=== PATIENT | male | born 1990 | race Caucasian/White ===

== ENCOUNTER 2021-10-09 13:02 | Inpatient (IN) | payer SELFPAY ==
[2021-10-09] VITALS (8 sets, daily range): BP systolic 102–149; BP diastolic 56–99; PULSE 65–96; RESP 15–18; TEMP 36.8–37.2; O2SAT 93–99; BMI 25.7
--- NOTE | 2021-10-09 13:18 | ECG_ITS ---
[facility] Test Date: 2021-10-09 Pat Name: Moody Tuttle Department: Room: Gender: Male Manager Development: : 1990 Requested By: Shaka Weiss Order Number: [id number] Pham MD: Stephanie Butcher M.D. Measurements Intervals [place] Rate: 87 P: 56 NE: 151 QRS: 61 QRSD: 94 T: 61 QT: 344 QTc: 416 Interpretive Statements SINUS RHYTHM No previous ECG available for comparison Electronically Signed On 10-09-2021 22:33:35 CDT by Stephanie Butcher M.D. [id number]
[2021-10-09 13:28] LABS: Basophils # 0.1 10^3/uL (0.0-0.1); Basophils % 0.4 %; Hematocrit 50.3 % (42.0-52.0); Hemoglobin 17.2 g/dL (11.7-16.6); Lymphocytes # 3.1 10^3/uL (0.8-4.8); Lymphocytes % 10.6 %; Mean Corpuscular HGB Conc 34.2 g/dL (30.0-36.0); Mean Corpuscular Hemoglobin 25.8 pg (28.0-34.0); Mean Corpuscular Volume 75.4 fl (80-94); Mean Platelet Volume 10.4 fL (7.4-10.4); Monocytes # 2.7 10^3/uL (0.2-0.9); Monocytes % 9.3 %; Neutrophils # 22.69 10^3/uL (1.8-7.7); Neutrophils % 77.9 %; Nucleated Red Blood Cells % 0 %; Platelet Count 645 10^3/cmm (130-400); Red Blood Count 6.67 10^6/uL (4.1-5.3); Red Cell Distribution Width 14.5 % (12.1-15.1); White Blood Count 29.1 10^3/uL (4.0-10.0)
[2021-10-09 13:53] LABS: Alanine Aminotransferase 106 U/L (0-41); Albumin Level 5.7 g/dL (3.5-5.2); Alkaline Phosphatase 80 IU/L (40-130); Anion Gap 32.9 (5-19); Aspartate Amino Transferase 243 U/L (0-40); Blood Urea Nitrogen 65 mg/dL (6-20); Carbon Dioxide 17 mmol/L (22-29); Chloride 79 mmol/L (98-107); Globulin 4.6 g/dL (1.3-4.6); Glomerular Filtration Rate 17.9 mL/min (90-130); Glucose 114 mg/dL (65-115); Lipase 40 U/L (13-60); Osmolality Calculated 280 mOsm/kg (285-295); Potassium 3.9 mmol/L (3.5-5.1); Sodium 125 mmol/L (136-145); Total Bilirubin 2.5 mg/dL (0.15-1.2); Total Protein 10.3 g/dL (6.6-8.7)
[2021-10-09 14:14] LABS: Creatine Phosphokinase 14300 U/L (39-308)
--- NOTE | 2021-10-09 14:29 | ECG_ITS ---
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 Measurements Intervals [place] Rate: 79 P: 58 [place]: 163 QRS: 63 QRSD: 95 T: 57 QT: 378 QTc: 435 Interpretive Statements SINUS RHYTHM Compared to ECG 10/09/2021 13:29:20 No significant changes Electronically Signed On 10-09-2021 22:32:59 CDT by Stephanie Butcher M.D. [id number]
--- NOTE | 2021-10-09 14:39 | W.ED.GENADLT ---
HPI - General Adult General: Chief complaint: General Medical Stated complaint: HEAT EXPOSURE Time Seen by Provider: 10/09/21 13:11 Source: patient Mode of arrival: ambulatory History of Present Illness: 31-year-old male presents emergency room complaining of his been walking for the last several days he is extremely weak reporting a fever. He admits to having used methamphetamines at times even recently. He is complaining of body aches and pains. Is also having some mild chest discomfort and nonproductive cough. Onset (ago): day(s) Location: chest Radiation: non-radiation Severity: moderate Pain Consistency: constant Relieving factors: none Exacerbating factors: none Associated symptoms: Reports chest pain; Deny confusion, dyspnea, malaise, nausea, rash or vomiting Review of Systems Const: Denies: fever(s), chills, body aches, change in appetite, fatigue or malaise ENMT: Denies: throat pain, ear or mastoid pain, nasal discharge or nasal congestion Card: Reports: chest pain Resp: Denies: dyspnea, productive cough or non-productive cough GI: Denies: abdominal pain, nausea, vomiting, hematemesis, coffee ground emesis, diarrhea, constipation, bloating, hematochezia or melena : Denies: flank pain, dysuria, urinary frequency or urinary urgency Skin/Breast: Denies: rash or pruritus Neuro: Denies: confusion PFSH ED PFSH: Medical History Heart murmur Tobacco use disorder Family History Father Hypertension Mother Hypertension Social History Smoking and tobacco status: current every day smoker Alcohol intake: current Physical Exam Const: COMMON NORMALS: no acute distress GENERAL APPEARANCE: cooperative and comfortable ORIENTATION/CONSCIOUSNESS: Yes awake HENMT: COMMON NORMALS: normocephalic, atraumatic and hearing grossly normal bilaterally HEAD & SCALP: normocephalic and atraumatic Resp: COMMON NORMALS: normal respiratory effort, No retractions, No use of accessory muscles and clear to auscultation bilaterally AUSCULTATION: clear to auscultation bilaterally Cardio: COMMON NORMALS: regular rate, regular rhythm and No murmurs present (Cardio) RATE: regular rate RHYTHM: regular rhythm GI: COMMON NORMALS: Soft to palpation and No hepatosplenomegaly present AUSCULTATION: Yes normoactive bowel sounds PALPATION: Yes Soft to palpation, No Tenderness to palpation present (GI), No Guarding due to palpation present (GI) and Yes No hepatosplenomegaly present : BLADDER/KIDNEY EXAM: Yes CVA tenderness (Moderate) Back/Pelvis: GENERAL BACK: Yes CVA tenderness (Moderate) Extremity: COMMON NORMALS: normal to inspection, capillary refill normal, no clubbing, cyanosis or edema, no calf tenderness and no pedal edema Skin: COMMON NORMALS: no rashes or lesions noted GENERAL SKIN EXAM: no rashes or lesions noted Course Vital Signs: Vital signs: Vital Signs Temperature 98.0 F 10/10/21 13:36 Pulse Rate 98 10/10/21 13:36 Respiratory Rate 18 10/10/21 13:36 Blood Pressure 117/77 10/10/21 13:36 Pulse Oximetry 99 10/10/21 10:30 [facility] - General Adult Medical Decision Making Acute kidney injury with rhabdomyolysis. Suspect sepsis likely secondary to IV drug use discussed with hospitalist orders written Medical Records I reviewed the patient's medical records. Lab Data I reviewed the patient's lab results. : 10/10/21 05:37 10/10/21 05:37 Radiology Impressions Renal Ultrasound 10/09/21 14:55 IMPRESSION: Normal renal ultrasound. Chest X-Ray 10/09/21 17:22 IMPRESSION: No acute findings. Laboratory Results WBC 29.1 10^3/uL (4.0-10.0) H 10/09/21 13:00 RBC 6.67 10^6/uL (4.1-5.3) H 10/09/21 13:00 Hgb 17.2 g/dL (11.7-16.6) H 10/09/21 13:00 Hct 50.3 % (42.0-52.0) 10/09/21 13:00 MCV 75.4 fl (80-94) L 10/09/21 13:00 MCH 25.8 pg (28.0-34.0) L 10/09/21 13:00 MCHC 34.2 g/dL (30.0-36.0) 10/09/21 13:00 RDW 14.5 % (12.1-15.1) 10/09/21 13:00 Plt Count 645 10^3/cmm (130-400) H 10/09/21 13:00 MPV 10.4 fL (7.4-10.4) 10/09/21 13:00 Neut % (Auto) 77.9 % 10/09/21 13:00 Lymph % (Auto) 10.6 % 10/09/21 13:00 [place] % (Auto) 9.3 % 10/09/21 13:00 Eos % (Auto) 0.0 % 10/09/21 13:00 Baso % (Auto) 0.4 % 10/09/21 13:00 Neut # (Auto) 22.69 10^3/uL (1.8-7.7) H 10/09/21 13:00 Lymph # (Auto) 3.1 10^3/uL (0.8-4.8) 10/09/21 13:00 [place] # (Auto) 2.7 10^3/uL (0.2-0.9) H 10/09/21 13:00 Eos # (Auto) 0.0 10^3/uL (0.0-0.8) 10/09/21 13:00 Baso # (Auto) 0.1 10^3/uL (0.0-0.1) 10/09/21 13:00 Nucleated RBC % (auto) 0 % 10/09/21 13:00 Nucleated RBCs # 0.0 /100WBC 10/09/21 13:00 Sodium 125 mmol/L (136-145) L 10/09/21 13:00 Sodium 128 mmol/L (136-145) L 10/09/21 13:00 Potassium 3.9 mmol/L (3.5-5.1) 10/09/21 13:00 Potassium 4.2 mmol/L (3.5-5.1) 10/09/21 13:00 Chloride 79 mmol/L (98-107) L 10/09/21 13:00 Chloride 80 mmol/L (98-107) L 10/09/21 13:00 Carbon Dioxide 17 mmol/L (22-29) L 10/09/21 13:00 Carbon Dioxide 17 mmol/L (22-29) L 10/09/21 13:00 Anion Gap 32.9 (5-19) H 10/09/21 13:00 Anion Gap 35.2 (5-19) H 10/09/21 13:00 BUN 65 mg/dL (6-20) H 10/09/21 13:00 BUN 70 mg/dL (6-20) H 10/09/21 13:00 Creatinine 3.9 mg/dL (0.7-1.2) H 10/09/21 13:00 Creatinine 4.2 mg/dL (0.7-1.2) H 10/09/21 13:00 GFR Calculation 16.4 mL/min (90-130) L 10/09/21 13:00 GFR Calculation 17.9 mL/min (90-130) L 10/09/21 13:00 Glucose 105 mg/dL (65-115) 10/09/21 13:00 Glucose 114 mg/dL (65-115) 10/09/21 13:00 Calculated Osmolality 280 mOsm/kg (285-295) L 10/09/21 13:00 Lactic Acid 1.3 mmol/L (0.5-2.2) 10/09/21 15:02 Calcium 11.0 mg/dL (8.5-10.5) H 10/09/21 13:00 Calcium 11.1 mg/dL (8.5-10.5) H 10/09/21 13:00 Phosphorus 7.7 mg/dL (2.5-4.5) H* 10/09/21 13:00 Total Bilirubin 2.5 mg/dL (0.15-1.2) H 10/09/21 13:00 AST 243 U/L (0-40) H 10/09/21 13:00 ALT 106 U/L (0-41) H 10/09/21 13:00 Alkaline Phosphatase 80 IU/L (40-130) 10/09/21 13:00 Creatine Kinase 23184 U/L (39-308) H* 10/09/21 13:00 Creatine Kinase 05564 U/L (39-308) H* 10/09/21 13:00 Troponin T Baseline 61 ng/L (0-15) H 10/09/21 13:00 Troponin T 120 Minute 26.85 ng/L (0-15) H 10/09/21 15:02 Delta Troponin T -34.15 ABS# (0-10) L 10/09/21 15:02 C-Reactive Protein 43.3 mg/L (0.0-4.9) H 10/09/21 13:00 Total Protein 10.3 g/dL (6.6-8.7) H 10/09/21 13:00 Albumin 5.7 g/dL (3.5-5.2) H 10/09/21 13:00 Albumin 5.8 g/dL (3.5-5.2) H 10/09/21 13:00 Globulin 4.6 g/dL (1.3-4.6) 10/09/21 13:00 Lipase 40 U/L (13-60) 10/09/21 13:00 Procalcitonin 0.82 ng/mL (0-0.5) H 10/09/21 13:00 Urine Color Dark yellow (Yellow) 10/09/21 15:20 Urine Appearance Turbid (CLEAR) 10/09/21 15:20 Urine pH 5 (5-7) 10/09/21 15:20 Ur Specific [place] 1.020 (1.005-1.030) 10/09/21 15:20 Urine Protein 1+ (Negative) H 10/09/21 15:20 Urine Glucose (UA) Norm (Normal) 10/09/21 15:20 Urine Ketones 1+ (Negative) H 10/09/21 15:20 Urine Blood 3+ (Negative) H 10/09/21 15:20 Urine Nitrate Negative (Negative) 10/09/21 15:20 Urine Bilirubin Neg (Negative) 10/09/21 15:20 Urine Urobilinogen Norm mg/dL (Negative) 10/09/21 15:20 Ur Leukocyte Esterase Negative (Negative) 10/09/21 15:20 Urine RBC 0-4 /hpf (0-2) H 10/09/21 15:20 Urine WBC 0-4 /hpf (0-5) H 10/09/21 15:20 Ur Squamous Epith Cells 0-4 /hpf (0-5) H 10/09/21 15:20 Amorphous Sediment Not Reportable 10/09/21 15:20 Urine Bacteria 1+ /hpf (NONE) H 10/09/21 15:20 Hyaline Casts 0-4 /lpf H 10/09/21 15:20 Fine Granular Casts 0-4 /lpf H 10/09/21 15:20 Urine Mucus N /hpf 10/09/21 15:20 Urine Osmolality 420 mOsm/kg (50-1200) 10/09/21 15:20 Ur Random Sodium 16 mmol/L 10/09/21 15:20 Ur Random Urea Nitrogn 716 mg/dL 10/09/21 15:20 Urine Creatinine 134 mg/dL (39-259) 10/09/21 15:20 Urine Opiates Screen Negative ng/mL (Negative) 10/09/21 15:20 Ur Barbiturates Screen Negative ng/mL (Negative) 10/09/21 15:20 Ur Phencyclidine Scrn Negative ng/mL (Negative) 10/09/21 15:20 Ur Amphetamines Screen Positive ng/mL (Negative) H 10/09/21 15:20 U Benzodiazepines Scrn Negative ng/mL (Negative) 10/09/21 15:20 Urine Cocaine Screen Negative ng/mL (Negative) 10/09/21 15:20 U Marijuana (THC) Screen Positive ng/mL (Negative) H 10/09/21 15:20 Ethyl Alcohol 13 mg/dL (0-10) H 10/09/21 15:02 Serum Ketones Negative (Negative) 10/09/21 15:02 Hepatitis A IgM Ab Non-reactive (Nonreactive) 10/09/21 15:02 Hep Bs Antigen Non-reactive (Nonreactive) 10/09/21 15:02 Hep B Core IgM Ab Non-reactive (Nonreactive) 10/09/21 15:02 Hepatitis C Antibody Reactive (Nonreactive) H 10/09/21 15:02 Discharge Plan Discharge Patient Disposition: Admitted As Inpatient Admit Provider: Jessee Bentley Clinical Impression: Rhabdomyolysis, Leukocytosis, Hyperbilirubinemia, Hyponatremia, Thrombocytosis, Methamphetamine abuse, Transaminitis Condition: Stable Discharge Orders: Discharge Order (Routine); Ordered 10/10/21 Ordered By: Jessee Bentley Discharge Diet: Regular Discharge Activity: Resume usual activity Coding Level of Care Code ED Employment Training Specialist for [facility] Robin
--- NOTE | 2021-10-09 14:55 | US_ITS ---
WS: [id number] RENAL ULTRASOUND HISTORY: OPHELIA COMPARISON: None available. TECHNIQUE: 2-D and color Doppler imaging of the kidney submitted. Right kidney: 9.7 cm x 5.8 cm x 5.0 cm. Normal echogenicity with no hydronephrosis or mass. Left kidney: 11.4 cm x 4.3 cm x 5.1 cm. Normal echogenicity with no hydronephrosis or mass. Aorta: Normal. Urinary Bladder: Normal distention. US/US renal BI* [id number] IMPRESSION: Normal renal ultrasound.
--- NOTE | 2021-10-09 15:10 | PM.HP ---
Providers/Chief Complaint Admitting Physician: Jessee Bentley Primary Care Provider: KARMEN Gallegos Chief Complaint: HEAT EXPOSURE History of Present Illness Moody Tuttle is a 31 year old male with a past medical history significant for heart murmur, tobacco use disorder, and methamphetamine use disorder who presents to ED via EMS with complaints of heat stroke. Upon assessment, he somewhat a poor historian and many of his responses trail off. He reports he has been walking down the road for the past three days straight. He states he was trying to walk home. He does not answer to from where he was coming. He reports poor PO intake for the past three days and states he felt extremely hot like he was having a heat stroke today. He endorses symptoms of epigastric discomfort and pain/tingling in his feet bilaterally. Denies fevers, chills, shortness of breath or cough. He endorses methamphetamine use. Reports he use to inject but has not done that for a while, he does not give a more accurate time frame than that. He reports his last meth use was about 3 days ago. He reports he eats and smokes the meth now. Patient endorses smoking cigarettes. We discussed smoking cessation. He reports desires to quit smoking. Reports he has quit a couple of times before, each time using the cold turkey method. He notes the financial constraint smoking has on him. Reports the longest cessation was for about 2 years. Discussed harmful effects of smoking on his health. Discussed treatment options. He is agreeable to nicotine replacement therapy. Review of Systems Narrative: A complete review of systems was obtained and is negative except as stated in HPI. Medications/Allergies Home Medications Medication Instructions Recorded Confirmed Last Taken Type No Known Home Medications 10/09/21 10/09/21 Unknown History Allergies Allergy/AdvReac Type Severity Reaction Status Date / Time No Known Allergies Allergy Unverified 10/09/21 15:25 PFSH Acute PFSH: Medical History (Updated 10/09/21 @ 16:04 by Jessee Bentley MD) Heart murmur Tobacco use disorder Family History (Updated 10/09/21 @ 15:55 by Jessee Bentley MD) Father Hypertension Mother Hypertension Social History (Updated 10/09/21 @ 15:55 by Jessee Bentley MD) Smoking and tobacco status: current every day smoker Alcohol intake: current Substance/Drug Use: current Vitals/I&O/Wt Last Vital Signs Temp 98.7 F 10/09/21 13:25 Pulse 90 10/09/21 14:03 Resp 15 10/09/21 14:03 BP 111/93 10/09/21 14:03 Pulse Ox 94 10/09/21 14:03 Physical Exam Narrative: General: Patient i s awake and alert. Head:? Normocepha lic. Atraumatic. E OM intact. Neck: N o JVD. Cardiovascu lar: RRR. No almazan ps. No murmurs. No peripheral edema. Lungs: Clear to a uscultation, no us e of accessory mus cles, no crackles or wheezes. Skin: No jaundice. Dorsa l aspect of distal feet and toes are erythematous and TTP. Multiple call uses on plantar fe et. Multiple tatto os. Abdomen: Edelmira l bowel sounds, ab domen soft and non tender. Extremetie s: No cyanosis or clubbing. Musculos keletal: Normal ra nge of motion, no swollen or erythem atous joints. Neur ological: Moves al l 4 extremities. N o myoclonus. Data : 10/09/21 13:00 10/09/21 13:00 A&P Assessment and plan (1) Leukocytosis: Concerning for infection versus stress and dehydration induced. [place] culture. Chest x-ray ordered. Status post vancomycin and Zosyn in ED. Will continue broad spectrum for now. MRSA swab ordered. Obtain inflammatory markers. Status: Acute (2) High anion gap metabolic acidosis: Suspect secondary to acute kidney injury. Urinary toxicology is pending. Lactic acid is pending. Status: Acute (3) Rhabdomyolysis: Secondary to severe dehydration in the setting of methamphetamine abuse. Received 2L LR in ED. Start IV fluids. Trend CK until it peaks. Status: Acute (4) Acute kidney injury: 2/2 Rhabdomyolysis. IVF as above. Avoid nephrotoxins. Strict I&Os. Renal US pending. Urine electrolytes ordered. Status: Acute (5) Erythrocytosis: 2/2 dehydration. CBC in AM Status: Acute (6) Thrombocytosis: 2/2 dehydration. CBC in AM Status: Acute (7) Hyponatremia: Unclear on chronicity. Trend renal function closely to avoid over correction. Status: Acute (8) Methamphetamine abuse: Cessation counseling provided. Status: Acute (9) Hypercalcemia: Likely due to renal function. Repeat calcium in AM. Status: Acute (10) Hyperbilirubinemia: CMP in AM. Acute hepatitis panel is pending. Status: Acute (11) Transaminitis: CMP in AM. Acute hepatitis panel is pending. Status: Acute (12) Myocardial injury: Low risk for coronary disease. Likely stress induced. Telemetry monitoring. Status: Acute (13) Tobacco use disorder: Smoking cessation discussed for >10 minutes. Patient agreeable to NRT. Status: Acute Plan DVT ppx: Heparin Code: Full Code Attestations Medical Necessity Statement*: Patient with multiple metabolic derrangements and is expected to cross to midnights to provide adequate medical treatment. Coding Level of Care Code Acute Wildlife Biology Internship for [employer] Morad Diagnoses Leukocytosis D72.829 Erythrocytosis D75.1 Thrombocytosis D75.839 Hyponatremia E87.1 High anion gap metabolic acidosis E87.2 Acute kidney injury N17.9 Methamphetamine abuse F15.10 Hypercalcemia E83.52 Hyperbilirubinemia E80.6 Transaminitis R74.01 Rhabdomyolysis M62.82 Myocardial injury I5A Tobacco use disorder F17.200
[2021-10-09] MEDS: piperacillin-tazobactam 3.375 GM in sodium chloride 0.9% (plus) 50 ML IV ×2 (15:26→23:25)
[2021-10-09] MEDS: lactated ringers 1,000 ML 999 ML IV ×2 (15:26→17:40)
[2021-10-09 15:27] LABS: Troponin(5th) Baseline 61 ng/L (0-15)
[2021-10-09 15:31] LABS: Lactic Sepsis W/Reflex 1.3 mmol/L (0.5-2.2)
[2021-10-09 15:35] LABS: Troponin 5 2HR 26.85 ng/L (0-15)
[2021-10-09 15:57] LABS: Alcohol Level 13 mg/dL (0-10)
[2021-10-09 15:59] LABS: Ketone (Acetest) Serum Negative (Negative)
[2021-10-09] MEDS: vancomycin 1,000 MG in sodium chloride 0.9% 250 ML 250 MG IV (15:59)
[2021-10-09 16:11] LABS: Amphetamines Screen Urine Positive (Negative); Barbiturates Screen Urine Negative (Negative); Benzodiazepines Screen Urine Negative (Negative); Cocaine Screen Urine Negative (Negative); Opiate Screen Urine Negative (Negative); PCP Screen Urine Negative (Negative); THC Screen Urine Positive (Negative)
[2021-10-09 16:27] LABS: Urine Appearance Turbid (CLEAR); Urine Color Dark Yellow (Yellow); pH Urine 5 (5-7)
[2021-10-09 16:28] LABS: Add Urine Microscopic? YES; Bilirubin Urine Neg (Negative); Blood Urine 3+ (Negative); Glucose Urine UA Norm (Normal); Ketones Urine 1+ (Negative); Leukocyte Esterase Urine Negative (Negative); Nitrate Urine Negative (Negative); Protein Urine 1+ (Negative); Urobilinogen Urine Norm (Negative)
--- NOTE | 2021-10-09 16:29 | ECG_ITS ---
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 Measurements Intervals [place] Rate: 80 P: 46 [place]: 164 QRS: 49 QRSD: 96 T: 50 QT: 388 QTc: 448 Interpretive Statements SINUS RHYTHM Compared to ECG 10/09/2021 14:56:51 No significant changes Electronically Signed On 10-09-2021 22:49:26 CDT by Stephanie Butcher M.D. [id number]
[2021-10-09 16:35] LABS: Bacteria Urine 1+ /hpf; RBC Urine 0-4 /hpf (0-2); Squamous Epithelial Cell Urine 0-4 /hpf (0-5); WBC Urine 0-4 /hpf (0-5)
[2021-10-09 16:35] LABS: Hepatitis A Antibody IgM Non-Reactive (Nonreactive); Hepatitis B Core IgM Non-Reactive (Nonreactive); Hepatitis B Surface Antigen Non-Reactive (Nonreactive); Hepatitis C Virus Antibody Reactive (Nonreactive)
[2021-10-09 16:36] LABS: Fine Granular Casts Urine 0-4 /lpf; Hyaline Casts Urine 0-4 /lpf; Mucus Urine N /hpf
[2021-10-09 16:37] LABS: Add Urine Culture? No
--- NOTE | 2021-10-09 17:22 | XRR_ITS ---
PROCEDURE INFORMATION: Exam: XR Chest Exam date and time: 10/09/2021 5:36 PM Age: 31 years old Clinical indication: Other: Heat exposer; Additional info: Evaluate for pna TECHNIQUE: Imaging protocol: XR of the chest. Views: 1 view. COMPARISON: No relevant prior studies available. FINDINGS: Lungs: Unremarkable. No consolidation. Pleural spaces: Unremarkable. No pleural effusion. No pneumothorax. Heart/Mediastinum: Unremarkable. No cardiomegaly. Bones/joints: Unremarkable. XR/XR chest 1V portable [id number] IMPRESSION: No acute findings.
[2021-10-09] MEDS: sodium chloride 0.9% 1,000 ML 50 ML IV (17:43)
[2021-10-09] MEDS: heparin 5,000 unit/mL INJ 1 mL 5000 UNIT SUBCUT (17:45)
[2021-10-09 18:00] LABS: Albumin Level 5.8 g/dL (3.5-5.2); Anion Gap 35.2 (5-19); Blood Urea Nitrogen 70 mg/dL (6-20); Calcium 11.1 mg/dL (8.5-10.5); Carbon Dioxide 17 mmol/L (22-29); Chloride 80 mmol/L (98-107); Glomerular Filtration Rate 16.4 mL/min (90-130); Glucose 105 mg/dL (65-115); Potassium 4.2 mmol/L (3.5-5.1); Sodium 128 mmol/L (136-145)
[2021-10-09 18:12] LABS: Procalcitonin 0.82 ng/mL (0-0.5)
[2021-10-09 18:31] LABS: Urine Creatinine 134 mg/dL (39-259)
[2021-10-09 18:31] LABS: C Reactive Protein 43.3 mg/L (0.0-4.9)
[2021-10-09 18:32] LABS: Urine Random Sodium 16 mmol/L
[2021-10-09] MEDS: nicotine 21 mg Patch 1 PATCH TRANSDERMA (18:32)
[2021-10-09 18:34] LABS: Creatine Phosphokinase 14492 U/L (39-308); Phosphorus 7.7 mg/dL (2.5-4.5)
[2021-10-09 18:58] LABS: Urea Nitrogen,Urine Random 716 mg/dL
[2021-10-09 19:22] LABS: Troponin 5 6HR 19.08 ng/L (0-15)
--- NOTE | 2021-10-09 20:29 | ECG_ITS ---
[facility] Test Date: 2021-10-31 Pat Name: Moody Tuttle Department: Room: 278 Gender: Male Cigarette Maker: : 1990 Requested By: Shaka Weiss Order Number: [id number] Pham MD: Matteo Baig M.D. Measurements Intervals [place] Rate: 82 P: 70 [place]: 141 QRS: 57 QRSD: 90 T: 68 QT: 368 QTc: 431 Interpretive Statements SINUS RHYTHM Compared to ECG 10/09/2021 16:40:36 No significant changes Electronically Signed On 11-01-2021 22:39:05 CDT by Matteo Baig M.D. [id number] f
[2021-10-10 04:00] VITALS: BP 110/68; PULSE 75; RESP 17; TEMP 37.2; O2SAT 98
[2021-10-10] MEDS: heparin 5,000 unit/mL INJ 1 mL 5000 UNIT SUBCUT (04:41)
--- NOTE | 2021-10-10 05:43 | PC.NURSE ---
1x Unsuccessful IV insertion attempt to left forearm. 1x Successful IV insertion left median cubital vein per protocol, pt tolerated well.
[2021-10-10 05:46] LABS: Basophils # 0.1 10^3/uL (0.0-0.1); Basophils % 0.7 %; Eosinophils # 0.1 10^3/uL (0.0-0.8); Eosinophils % 0.3 %; Hematocrit 44.6 % (42.0-52.0); Hemoglobin 14.8 g/dL (11.7-16.6); Lymphocytes # 4.1 10^3/uL (0.8-4.8); Lymphocytes % 22.4 %; Mean Corpuscular HGB Conc 33.2 g/dL (30.0-36.0); Mean Corpuscular Volume 78.4 fl (80-94); Monocytes # 1.8 10^3/uL (0.2-0.9); Neutrophils # 11.77 10^3/uL (1.8-7.7); Nucleated Red Blood Cells % 0 %; Platelet Count 519 10^3/cmm (130-400); Red Blood Count 5.69 10^6/uL (4.1-5.3); Red Cell Distribution Width 14.3 % (12.1-15.1); White Blood Count 18.1 10^3/uL (4.0-10.0)
[2021-10-10 06:00] VITALS: PULSE 74
[2021-10-10 06:10] LABS: Alanine Aminotransferase 99 U/L (0-41); Albumin Level 4.4 g/dL (3.5-5.2); Alkaline Phosphatase 58 IU/L (40-130); Blood Urea Nitrogen 35 mg/dL (6-20); Calcium 9.4 mg/dL (8.5-10.5); Carbon Dioxide 22 mmol/L (22-29); Globulin 3.6 g/dL (1.3-4.6); Glomerular Filtration Rate 97.2 mL/min (90-130); Glucose 83 mg/dL (65-115); Magnesium 2.7 mg/dL (1.7-2.3); Phosphorus 2.5 mg/dL (2.5-4.5); Total Bilirubin 2.6 mg/dL (0.15-1.2)
[2021-10-10] MEDS: piperacillin-tazobactam 3.375 GM in sodium chloride 0.9% (plus) 50 ML IV (06:16)
[2021-10-10 06:43] LABS: Chloride 94 mmol/L (98-107); Osmolality Calculated 279 mOsm/kg (285-295); Sodium 131 mmol/L (136-145)
[2021-10-10 06:54] LABS: Anion Gap 18.9 (5-19); Potassium 3.9 mmol/L (3.5-5.1)
[2021-10-10 06:55] LABS: Aspartate Amino Transferase 214 U/L (0-40)
[2021-10-10 07:09] LABS: Creatine Phosphokinase 9179 U/L (39-308)
[2021-10-10 08:00] VITALS: BP 116/69; PULSE 59; RESP 16; TEMP 36.8; O2SAT 96
[2021-10-10] MEDS: thiamine 100 mg Tablet PO (09:35)
[2021-10-10] MEDS: lidocaine 2% viscous 15 ML, aluminum-mag hydrox-simethicon 30 ML, sucralfate oral liq 1 GM PO (09:35)
[2021-10-10] MEDS: folic acid 1 mg Tablet PO (09:35)
[2021-10-10] MEDS: nicotine 21 mg Patch 1 PATCH TRANSDERMA (09:35)
[2021-10-10] MEDS: multivitamin therapeutic Tablet 1 TAB PO (09:35)
--- NOTE | 2021-10-10 10:11 | PM.DCS ---
Discharge Providers Date of Admission: 10/09/21 15:23 Date of Discharge: October 10, 2021 Attending Provider at Admission: Jessee Bentley MD Attending Provider at Discharge: Jessee Bentley MD Consults: None Primary Care Provider: KARMEN Gallegos Diagnoses at Discharge Discharge Diagnosis (1) Leukocytosis: Status: Acute (2) High anion gap metabolic acidosis: Status: Acute (3) Rhabdomyolysis: Status: Acute (4) Acute kidney injury: Status: Acute (5) Erythrocytosis: Status: Acute (6) Thrombocytosis: Status: Acute (7) Hyponatremia: Status: Acute (8) Methamphetamine abuse: Status: Acute (9) Hypercalcemia: Status: Acute (10) Hyperbilirubinemia: Status: Acute (11) Transaminitis: Status: Acute (12) Myocardial injury: Status: Acute (13) Tobacco use disorder: Status: Acute Reason for Visit Reason for Visit: HEAT EXPOSURE Hospital Course Hospital Course Moody Tuttle is a 31 year old male with a past medical history significant for heart murmur, tobacco use disorder, and methamphetamine use disorder who presents to ED via EMS with complaints of heat stroke, found to have multiple metabolic derangements including acute kidney injury, high anion gap metabolic acidosis, rhabdomyolysis, leukocytosis, erythrocytosis, thrombocytosis, hypovolemic hyponatremia, hypercalcemia, transaminitis, hyperbilirubinemia, and acute myocardial injury. Initial concern for sepsis for which patient was treated with empiric antibiotics with vancomycin and Zosyn. Chest x-ray and urinalysis unremarkable. Blood cultures are no growth to date. No source of infection identified. Sepsis considered but ruled out. He was treated with aggressive IV fluid resuscitation with significant improvement metabolic disturbances. He was tolerating good p.o. intake on day of discharge. He was counseled on proper fluid intake. Patient was found to have intermittent abdominal pain most likely secondary to alcohol induced gastritis. He was discharged on a PPI. His hepatitis C antibody was positive. Hepatitis C viral RNA PCR is pending at the time of discharge. He is to follow-up with his primary care provider in 1 week for further management. He has a history of tobacco use and methamphetamine use disorder. He was counseled on cessation. Physical Exam Narrative: General: Patient is awake and alert. Head: Normocephalic. Atraumatic. EOM intact. Neck: No JVD. Cardiovascular: RRR. No gallops. No murmurs. No peripheral edema. Lungs: Clear to auscultation, no use of accessory muscles, no crackles or wheezes. Skin: No jaundice. No rashes. Abdomen: Normal bowel sounds, abdomen soft and nontender. Genito Urinary: Genital exam not performed since complaints not related. Rectal: Rectal exam not performed since no symptoms indicated blood loss. Extremeties: No cyanosis or clubbing. Musculoskeletal: 5/5 strength, normal range of motion, no swollen or erythematous joints. Neurological: Moves all 4 extremities. No myoclonus. Discharge Data Studies Completed and Pending Completed Studies During Hospitalization Category Date Time Status XR chest 1V portable [id number] Urgent Exams 10/09/21 17:22 Completed US renal BI* [id number] Stat Ultrasound 10/09/21 14:55 Completed Pending at discharge Category Date Time Status Blood Culture Stat Lab 10/09/21 15:02 Results Hepatitis C RNA Viral Load Qnt Routine Lab 10/09/21 16:36 Received MRSA by PCR Routine Lab 10/09/21 18:00 Received Osmolality Urine Routine Lab 10/09/21 15:20 Received Radiology Impressions Renal Ultrasound 10/09/21 14:55 IMPRESSION: Normal renal ultrasound. Chest X-Ray 10/09/21 17:22 IMPRESSION: No acute findings. Laboratory Results WBC 18.1 10^3/uL (4.0-10.0) H 10/10/21 05:37 RBC 5.69 10^6/uL (4.1-5.3) H 10/10/21 05:37 Hgb 14.8 g/dL (11.7-16.6) 10/10/21 05:37 Hct 44.6 % (42.0-52.0) 10/10/21 05:37 MCV 78.4 fl (80-94) L 10/10/21 05:37 MCH 26.0 pg (28.0-34.0) L 10/10/21 05:37 MCHC 33.2 g/dL (30.0-36.0) 10/10/21 05:37 RDW 14.3 % (12.1-15.1) 10/10/21 05:37 Plt Count 519 10^3/cmm (130-400) H 10/10/21 05:37 MPV 10.0 fL (7.4-10.4) 10/10/21 05:37 Neut % (Auto) 65.0 % 10/10/21 05:37 Lymph % (Auto) 22.4 % 10/10/21 05:37 [place] % (Auto) 10.0 % 10/10/21 05:37 Eos % (Auto) 0.3 % 10/10/21 05:37 Baso % (Auto) 0.7 % 10/10/21 05:37 Neut # (Auto) 11.77 10^3/uL (1.8-7.7) H 10/10/21 05:37 Lymph # (Auto) 4.1 10^3/uL (0.8-4.8) 10/10/21 05:37 [place] # (Auto) 1.8 10^3/uL (0.2-0.9) H 10/10/21 05:37 Eos # (Auto) 0.1 10^3/uL (0.0-0.8) 10/10/21 05:37 Baso # (Auto) 0.1 10^3/uL (0.0-0.1) 10/10/21 05:37 Nucleated RBC % (auto) 0 % 10/10/21 05:37 Nucleated RBCs # 0.0 /100WBC 10/10/21 05:37 Sodium 131 mmol/L (136-145) L 10/10/21 05:37 Potassium 3.9 mmol/L (3.5-5.1) 10/10/21 05:37 Chloride 94 mmol/L (98-107) L 10/10/21 05:37 Carbon Dioxide 22 mmol/L (22-29) 10/10/21 05:37 Anion Gap 18.9 (5-19) 10/10/21 05:37 BUN 35 mg/dL (6-20) H 10/10/21 05:37 Creatinine 0.9 mg/dL (0.7-1.2) 10/10/21 05:37 GFR Calculation 97.2 mL/min (90-130) 10/10/21 05:37 Glucose 83 mg/dL (65-115) 10/10/21 05:37 Calculated Osmolality 279 mOsm/kg (285-295) L 10/10/21 05:37 Lactic Acid 1.3 mmol/L (0.5-2.2) 10/09/21 15:02 Calcium 9.4 mg/dL (8.5-10.5) 10/10/21 05:37 Phosphorus 2.5 mg/dL (2.5-4.5) D 10/10/21 05:37 Magnesium 2.7 mg/dL (1.7-2.3) H 10/10/21 05:37 Total Bilirubin 2.6 mg/dL (0.15-1.2) H 10/10/21 05:37 AST 214 U/L (0-40) H 10/10/21 05:37 ALT 99 U/L (0-41) H 10/10/21 05:37 Alkaline Phosphatase 58 IU/L (40-130) 10/10/21 05:37 Creatine Kinase 9179 U/L (39-308) H* 10/10/21 05:37 Troponin T Baseline 61 ng/L (0-15) H 10/09/21 13:00 Troponin T 120 Minute 26.85 ng/L (0-15) H 10/09/21 15:02 Delta Troponin T -34.15 ABS# (0-10) L 10/09/21 15:02 Troponin T Hi Sens 6Hr 19.08 ng/L (0-15) H 10/09/21 18:48 Troponin T Hi Sens 6Hr Delta -41.92 ng/L (0-12) L 10/09/21 18:48 C-Reactive Protein 43.3 mg/L (0.0-4.9) H 10/09/21 13:00 Total Protein 8.0 g/dL (6.6-8.7) D 10/10/21 05:37 Albumin 4.4 g/dL (3.5-5.2) 10/10/21 05:37 Globulin 3.6 g/dL (1.3-4.6) 10/10/21 05:37 Lipase 40 U/L (13-60) 10/09/21 13:00 Procalcitonin 0.82 ng/mL (0-0.5) H 10/09/21 13:00 Urine Color Dark yellow (Yellow) 10/09/21 15:20 Urine Appearance Turbid (CLEAR) 10/09/21 15:20 Urine pH 5 (5-7) 10/09/21 15:20 Ur Specific [employer] 1.020 (1.005-1.030) 10/09/21 15:20 Urine Protein 1+ (Negative) H 10/09/21 15:20 Urine Glucose (UA) Norm (Normal) 10/09/21 15:20 Urine Ketones 1+ (Negative) H 10/09/21 15:20 Urine Blood 3+ (Negative) H 10/09/21 15:20 Urine Nitrate Negative (Negative) 10/09/21 15:20 Urine Bilirubin Neg (Negative) 10/09/21 15:20 Urine Urobilinogen Norm mg/dL (Negative) 10/09/21 15:20 Ur Leukocyte Esterase Negative (Negative) 10/09/21 15:20 Urine RBC 0-4 /hpf (0-2) H 10/09/21 15:20 Urine WBC 0-4 /hpf (0-5) H 10/09/21 15:20 Ur Squamous Epith Cells 0-4 /hpf (0-5) H 10/09/21 15:20 Amorphous Sediment Not Reportable 10/09/21 15:20 Urine Bacteria 1+ /hpf (NONE) H 10/09/21 15:20 Hyaline Casts 0-4 /lpf H 10/09/21 15:20 Fine Granular Casts 0-4 /lpf H 10/09/21 15:20 Urine Mucus N /hpf 10/09/21 15:20 Ur Random Sodium 16 mmol/L 10/09/21 15:20 Ur Random Urea Nitrogn 716 mg/dL 10/09/21 15:20 Urine Creatinine 134 mg/dL (39-259) 10/09/21 15:20 Urine Opiates Screen Negative ng/mL (Negative) 10/09/21 15:20 Ur Barbiturates Screen Negative ng/mL (Negative) 10/09/21 15:20 Ur Phencyclidine Scrn Negative ng/mL (Negative) 10/09/21 15:20 Ur Amphetamines Screen Positive ng/mL (Negative) H 10/09/21 15:20 U Benzodiazepines Scrn Negative ng/mL (Negative) 10/09/21 15:20 Urine Cocaine Screen Negative ng/mL (Negative) 10/09/21 15:20 U Marijuana (THC) Screen Positive ng/mL (Negative) H 10/09/21 15:20 Ethyl Alcohol 13 mg/dL (0-10) H 10/09/21 15:02 Serum Ketones Negative (Negative) 10/09/21 15:02 Hepatitis A IgM Ab Non-reactive (Nonreactive) 10/09/21 15:02 Hep Bs Antigen Non-reactive (Nonreactive) 10/09/21 15:02 Hep B Core IgM Ab Non-reactive (Nonreactive) 10/09/21 15:02 Hepatitis C Antibody Reactive (Nonreactive) H 10/09/21 15:02 Vitals Last Vital Signs Temp 98.2 F 10/10/21 08:00 Pulse 59 L 10/10/21 08:00 Resp 16 10/10/21 08:00 BP 116/69 10/10/21 08:00 Pulse Ox 96 10/10/21 08:00 Discharge Plan Discharge Patient Disposition: Home Condition: Stable Prescriptions: New pantoprazole 40 mg tablet,delayed release (DR/EC) 40 mg PO DAILY 28 Days Qty: 30 0RF Discharge Orders: Discharge Order (Routine); Ordered 10/10/21 Ordered By: Jessee Bentley Referrals: Latasha Elizabeth FNP-C [Primary Care Provider] - 1 week Discharge Diet: Regular Discharge Activity: Resume usual activity Patient Instructions: Opioid Safety Activity Restrictions/Additional Instructions: Follow up with primary care provider in 1 week. Discharge Attestations Time Spent in Discharge Care*: greater than 30 min Quality Metrics Clinical Quality Measures [ No reported AMI, CVA or VTE this stay] Coding Level of Care Code Acute Chg FW DC note Diagnoses Leukocytosis D72.829 High anion gap metabolic acidosis E87.2 Rhabdomyolysis M62.82 Acute kidney injury N17.9 Erythrocytosis D75.1 Thrombocytosis D75.839 Hyponatremia E87.1 Methamphetamine abuse F15.10 Hypercalcemia E83.52 Hyperbilirubinemia E80.6 Transaminitis R74.01 Myocardial injury I5A Tobacco use disorder F17.200
[2021-10-10 10:30] VITALS: BP 105/71; PULSE 133; RESP 17; O2SAT 99
--- NOTE | 2021-10-10 10:30 | PC.NURSE ---
Procedure end at 1028. 1500mL removed from right side. Patient tolerated well. Was tachy during procedure 130-135 pulse rate. All other vitals WNL.
[2021-10-10] MEDS: vancomycin 1,000 MG in sodium chloride 0.9% 250 ML 250 MG IV (11:09)
--- NOTE | 2021-10-10 11:13 | PC.CHAP ---
Pastoral Care Encounter/Spiritual Assessment Type of Contact [x] Declined vice president digital strategist visit [] Patient/Family/Request visit [] Outpatient visit [] Follow-up visit [] Physician referral [] Code/Alert [] Routine visit [] Staff referral [] Actively dying [] Patient sleeping [] Family support [] [] Out of room [] Palliative care [] [] Receiving care in room [] Pre-surgical visit [] Trauma [] Long length of stay [] ICU visit [] Other: Relational/Emotional Strength [] Patient feels connected with others/family/visitors/staff [] Distress [] Loneliness/isolation [] Abandonment Spirituality of Patient [] Person of Martina [] Attends Tenriism of their Martina [] Believes in Prayer [] Reads Bible or Mormon materials [] There are Spiritual issues to be addressed Medical Records Technician Interventions [] Prayer [] Active listening [] Non-anxious presence [] Spiritual/emotional support [] Crisis/trauma care [] Spiritual counseling [] Bereavement support [] Provided bereavement packet [] Provided Bible/devotional materials [] Provided toy/stuffed animal, coloring book to patient or family member [] Provided Communion [] Anointing/[place] [] Salvation [] Completed spiritual assessment [] Other: Impact on Illness or Injury [] Angry [] Fearful [] Anxious [] Often cries [] Exhaustion [] Unable to work [] Unable to attend rastafarian [] Unable to walk/stand [] Unable to read [] Unable to drive [] Unable to eat/drink [] Unable to sleep [] Unable to be with family [] Patient intubated [] Other: Summary Declined vice president digital strategist visit Time spent with patient 5 mins
[2021-10-10 12:00] VITALS: BP 117/77; PULSE 98; RESP 18; TEMP 36.7
--- NOTE | 2021-10-10 13:33 | PC.NURSE ---
Discharge Note Patient discharged to home via private vehicle accompanied by father. Discharge instructions reviewed with patient and/or liability claims representative. Mobile pharmacy medications and/or prescriptions provided. Belongings/home medications returned.
[2021-10-10 13:36] VITALS: BP 117/77; PULSE 98; RESP 18; TEMP 36.7
[2021-10-11 09:23] LABS: HEP C RNA Viral Load Quant 215000 IU/mL (NOT DETECTED); HEP C RNA Viral Load Quant 5.33 Log IU/mL (NOT DETECTED)
[2021-10-11 15:53] LABS: Osmolality Urine 420 mOsm/kg (50-1200)
== END 2021-10-10 13:37 | disposition home or self-care (01) | DRG 923 ==
LOC: ER 15:10 → MEDSURG 16:50
PROVIDERS: Admitting Provider Internal Medicine; Emergency Provider Family Medicine; PCP Nurse Practitioner Family; Visit Provider Internal Medicine
DX: T67.01XA Heatstroke and sunstroke, initial encounter (principal); N17.9 Acute kidney failure, unspecified; E87.1 Hypo-osmolality and hyponatremia; M62.82 Rhabdomyolysis; I5A Non-ischemic myocardial injury (non-traumatic); E87.2 Acidosis; D72.829 Elevated white blood cell count, unspecified; D75.1 Secondary polycythemia; D75.839 Thrombocytosis, unspecified; F15.10 Other stimulant abuse, uncomplicated; E83.52 Hypercalcemia; E80.6 Other disorders of bilirubin metabolism; R74.01 Elevation of levels of liver transaminase levels; K29.20 Alcoholic gastritis without bleeding; R76.8 Other specified abnormal immunological findings in serum; R07.9 Chest pain, unspecified; F17.210 Nicotine dependence, cigarettes, uncomplicated; E86.0 Dehydration; Z72.89 Other problems related to lifestyle
CPT/HCPCS: 36415; 71045; 76770; 80053; 80069; 80074; 80306; 80307; 81001; 82009; 82550; 82570; 83605; 83690; 83735; 83935; 84100; 84145; 84300; 84484; 84540; 85025; 86140; 87040; 87522; 87641; 93005; 96365; 96367; 96372; 99285; J1644; J2543; J3370; J7030; J7050

== ENCOUNTER 2021-10-31 13:51 | Inpatient (IN) | payer OTHER, SELFPAY ==
[2021-10-31] VITALS (10 sets, daily range): BP systolic 112–138; BP diastolic 64–80; PULSE 75–116; RESP 11–19; TEMP 36.5–37; O2SAT 96–99; BMI 26.5
--- NOTE | 2021-10-31 13:59 | ED_ITS ---
HPI - Nausea/Vomiting/Diarrhea General: Chief complaint: Nausea/Vomiting/Diarrhea Stated complaint: n/v Time Seen by Provider: 10/31/21 13:59 History of Present Illness: Mr. Tuttle is a 31-year-old gentleman presenting to the emergency department due to hematemesis. He reports a few day history of occasional burning worse reflux type symptoms and abnormal feeling in the epigastric region. He subsequently developed nausea with 4 episodes of hematemesis today which is mostly dark and red streaked. He denies changes in bowel movements. At times he feels off with mild lightheadedness but no syncope or presyncope. Denies similar episodes in the past. Remote history of alcohol misuse however nothing currently. Denies infectious symptoms. Intensity symptoms is moderate. Course has persisted. No other specific changes in health, exacerbating, or alleviating factors identified. Onset (ago): hour(s) Description of vomiting: blood-streaked Associated nausea: Yes Associated abdominal pain: Yes Location of pain: Epigastric Severity: mild Quality: other Associated symtoms: Reports nausea Review of Systems General: Reports: 10 or more systems reviewed and unremarkable except in HPI and below GI: Reports: nausea [facility] ED PFSH: Medical History Heart murmur Rhabdomyolysis Tobacco use disorder Family History Father Hypertension Mother Hypertension Social History Smoking and tobacco status: current every day smoker Alcohol intake: current Physical Exam Const: COMMON NORMALS: alert GENERAL APPEARANCE: cooperative and well developed HENMT: COMMON NORMALS: normocephalic and atraumatic HEAD & SCALP: normocephalic and atraumatic Eye: COMMON NORMALS: conjunctivae normal CONJUNCTIVA: Yes conjunctivae normal SCLERA: sclerae normal Neck/C-Spine: COMMON NORMALS: supple GENERAL: Yes trachea midline Resp: COMMON NORMALS: normal respiratory effort EFFORT & INSPECTION: Yes able to speak in complete sentences Cardio: COMMON NORMALS: regular rhythm RATE: tachycardic RHYTHM: regular rhythm GI: COMMON NORMALS: Soft to palpation PALPATION: Yes Soft to palpation, Yes Tenderness to palpation present (GI) (Mild epigastric), No Guarding due to palpation present (GI) and No Rigid due to palpation PERCUSSION: normal to percussion Extremity: GENERAL: Yes normal exam except as noted and No edema Neuro: COMMON NORMALS: moves all extremities SENSORIUM/ORIENTATION: Yes alert and No Orientation impaired Psych: COMMON NORMALS: mental status grossly normal and Normal thought process present THOUGHT PROCESS: Normal thought process present Course ED course: - Patient was seen and evaluated by me at bedside - Patient placed on cardiac monitors, IV access obtained - Initial evaluation notable for exam as above. - Labs and xrays personally interpreted by me -Protonix and fluids given - Labs notable for leukocytosis which may be reactive, hemoglobin 11 initially which is down from prior. Platelet count mildly elevated. INR normal. Metabolic panel with mild evidence of intravascular dehydration, total bilirubin mildly elevated. Transaminases and lipase normal. - Imaging notable for no acute abnormality identified on CT abdomen or pelvis. - Upon serial reexamination after treatment the patient was similar without recurrence of hematemesis. Repeat hemoglobin continues to decrease however and therefore patient requires further inpatient management. Discussed with GI. - Based on patient history, evaluation, and testing as interpreted the most likely cause of the patient's condition is hematemesis secondary to upper GI bleed. - The results of ED evaluation were discussed with the patient including plan for admission due to requirement for level of care not available if discharged to prevent significant worsening/deterioration. - Admitting service was contacted and Dr Oscar with the hospitalist service agreed to admit the patient - Patient was admitted without further deterioration or significant events. Note: Click bubbles or prepopulated franco in note writing are used for assistance with data collection and billing and are inherently more limited than narrative and other text portions of this note. Please use narrative for additional clinical history and defer to narrative/free test for any case of contradictory information. If information appears in only free text or click bubble it should be considered present or absent as reported. Please contact note singer songwriter for clarifications of clinical information or contradictory information. MDM is a brief summary, contradictory or erroneous seeming information should be clarified and full note should be reviewed. Vital Signs: Vital signs: Vital Signs Temperature 98.2 F 11/04/21 08:00 Pulse Rate 83 11/04/21 13:00 Respiratory Rate 25 H 11/04/21 13:00 Blood Pressure 146/59 11/04/21 14:00 Pulse Oximetry 100 11/04/21 13:00 MDM - Nausea/Vomiting/Diarrhea Medical Decision Making 31-year-old gentleman with history of hepatitis C though no known history of cirrhosis presenting to the emergency department due to hematemesis. Patient remained vitally satisfactory while in the emergency department and did not have recurrent episodes however hemoglobin dropped from baseline and decreased on repeat. Discussed with GI and patient admitted to hospitalist service for further evaluation and management. Medical Records I reviewed the patient's medical records. Lab Data I reviewed the patient's lab results. : 11/04/21 04:38 11/04/21 04:38 Radiology Impressions Abdomen/Pelvis CT 10/31/21 14:10 IMPRESSION: No acute intra-abdominal or intrapelvic pathology. Chest X-Ray 11/01/21 10:10 IMPRESSION: No acute findings. NG tube is in the stomach. endotracheal tube is above the manish Laboratory Results WBC 19.0 10^3/uL (4.0-10.0) H 10/31/21 14:15 RBC 4.22 10^6/uL (4.1-5.3) 10/31/21 14:15 Hgb 8.7 g/dL (11.7-16.6) L 10/31/21 17:28 Hct 27.5 % (42.0-52.0) L 10/31/21 17:28 MCV 79.1 fl (80-94) L 10/31/21 14:15 MCH 26.1 pg (28.0-34.0) L 10/31/21 14:15 MCHC 32.9 g/dL (30.0-36.0) 10/31/21 14:15 RDW 14.4 % (12.1-15.1) 10/31/21 14:15 Plt Count 446 10^3/cmm (130-400) H 10/31/21 14:15 MPV 10.4 fL (7.4-10.4) 10/31/21 14:15 Neut % (Auto) 80.7 % 10/31/21 14:15 Lymph % (Auto) 12.3 % 10/31/21 14:15 [place] % (Auto) 5.5 % 10/31/21 14:15 Eos % (Auto) 0.3 % 10/31/21 14:15 Baso % (Auto) 0.4 % 10/31/21 14:15 Neut # (Auto) 15.35 10^3/uL (1.8-7.7) H 10/31/21 14:15 Lymph # (Auto) 2.3 10^3/uL (0.8-4.8) 10/31/21 14:15 [place] # (Auto) 1.1 10^3/uL (0.2-0.9) H 10/31/21 14:15 Eos # (Auto) 0.1 10^3/uL (0.0-0.8) 10/31/21 14:15 Baso # (Auto) 0.1 10^3/uL (0.0-0.1) 10/31/21 14:15 Nucleated RBC % (auto) 0 % 10/31/21 14:15 Nucleated RBCs # 0.0 /100WBC 10/31/21 14:15 PT 14.80 SECONDS (12.1-14.9) 10/31/21 14:51 INR 1.13 (0.8-1.2) 10/31/21 14:51 Sodium 131 mmol/L (136-145) L 10/31/21 14:15 Potassium 5.2 mmol/L (3.5-5.1) H 10/31/21 14:15 Chloride 94 mmol/L (98-107) L 10/31/21 14:15 Carbon Dioxide 21 mmol/L (22-29) L 10/31/21 14:15 Anion Gap 21.2 (5-19) H 10/31/21 14:15 BUN 20 mg/dL (6-20) 10/31/21 14:15 Creatinine 0.6 mg/dL (0.7-1.2) L 10/31/21 14:15 GFR Calculation 155.2 mL/min (90-130) H 10/31/21 14:15 Glucose 115 mg/dL (65-115) 10/31/21 14:15 Calculated Osmolality 276 mOsm/kg (285-295) L 10/31/21 14:15 Calcium 9.1 mg/dL (8.5-10.5) 10/31/21 14:15 Total Bilirubin 1.4 mg/dL (0.15-1.2) H 10/31/21 14:15 AST 25 U/L (0-40) 10/31/21 14:15 ALT 16 U/L (0-41) 10/31/21 14:15 Alkaline Phosphatase 54 IU/L (40-130) 10/31/21 14:15 Creatine Kinase 210 U/L (39-308) 10/31/21 14:10 Total Protein 7.1 g/dL (6.6-8.7) 10/31/21 14:15 Albumin 4.5 g/dL (3.5-5.2) 10/31/21 14:15 Globulin 2.6 g/dL (1.3-4.6) 10/31/21 14:15 Lipase 11 U/L (13-60) L 10/31/21 14:15 Blood Type A Positive 10/31/21 14:51 Rho(D) Type Positive 10/31/21 14:51 Antibody Screen Negative 10/31/21 14:51 Crossmatch See Detail 10/31/21 14:51 Discharge Plan Discharge Patient Disposition: Placed in Observation Admit Provider: Prudencio Oscar Clinical Impression: Acute GI bleeding Discharge Diet: GI Soft Discharge Activity: Resume usual activity Coding Level of Care Code ED Corporate Safety Director for [place] Fwd Exam Comprehensive
--- NOTE | 2021-10-31 14:10 | CTR_ITS ---
PROCEDURE INFORMATION: Exam: CT Abdomen And Pelvis With Contrast Exam date and time: 10/31/2021 2:38 PM Age: 31 years old Clinical indication: Nausea and vomiting; Abdominal pain; Epigastric; Additional info: Epigastric pain, hematemesis TECHNIQUE: Imaging protocol: Computed tomography of the abdomen and pelvis with contrast. Radiation optimization: All CT scans at this facility use at least one of these dose optimization techniques: automated exposure control; mA and/or kV adjustment per patient size (includes targeted exams where dose is matched to clinical indication); or iterative reconstruction. Contrast material: OMNI 300; Contrast volume: 50 ml; Contrast route: INTRAVENOUS (IV); COMPARISON: US renal BI* [id number] 10/09/2021 3:04 PM RADIATION DOSE METRICS: Total DLP (mGy-cm): 973.39 FINDINGS: Liver: Normal. No mass. Gallbladder and bile ducts: Normal. No calcified stones. No ductal dilation. Pancreas: Normal. No ductal dilation. Spleen: Normal. No splenomegaly. Adrenal glands: Normal. No mass. Kidneys and ureters: Normal. No hydronephrosis. Stomach and bowel: Distended gastric cavity filled with fluid and debris. Appendix: No evidence of appendicitis. Intraperitoneal space: Unremarkable. No free air. No significant fluid collection. Vasculature: Unremarkable. No abdominal aortic aneurysm. Lymph nodes: Unremarkable. No enlarged lymph nodes. Urinary bladder: Unremarkable as visualized. Reproductive: Unremarkable as visualized. Bones/joints: Unremarkable. No acute fracture. Soft tissues: Unremarkable. CT/CT abdomen pelvis w con* [id number] IMPRESSION: No acute intra-abdominal or intrapelvic pathology.
[2021-10-31 14:41] LABS: Basophils # 0.1 10^3/uL (0.0-0.1); Basophils % 0.4 %; Eosinophils # 0.1 10^3/uL (0.0-0.8); Eosinophils % 0.3 %; Hematocrit 33.4 % (42.0-52.0); Lymphocytes # 2.3 10^3/uL (0.8-4.8); Lymphocytes % 12.3 %; Mean Corpuscular HGB Conc 32.9 g/dL (30.0-36.0); Mean Corpuscular Hemoglobin 26.1 pg (28.0-34.0); Mean Corpuscular Volume 79.1 fl (80-94); Mean Platelet Volume 10.4 fL (7.4-10.4); Monocytes # 1.1 10^3/uL (0.2-0.9); Monocytes % 5.5 %; Neutrophils # 15.35 10^3/uL (1.8-7.7); Neutrophils % 80.7 %; Nucleated Red Blood Cells % 0 %; Platelet Count 446 10^3/cmm (130-400); Red Blood Count 4.22 10^6/uL (4.1-5.3); Red Cell Distribution Width 14.4 % (12.1-15.1)
[2021-10-31] MEDS: iohexol 300 mg/mL 100 mL Btl IV (14:43)
[2021-10-31] MEDS: sodium chloride 0.9% 1,000 ML 999 ML IV (14:49)
[2021-10-31 14:50] LABS: Albumin Level 4.5 g/dL (3.5-5.2); Alkaline Phosphatase 54 IU/L (40-130); Blood Urea Nitrogen 20 mg/dL (6-20); Calcium 9.1 mg/dL (8.5-10.5); Carbon Dioxide 21 mmol/L (22-29); Chloride 94 mmol/L (98-107); Creatinine Clr Calc Pharmacy 151.9687; Globulin 2.6 g/dL (1.3-4.6); Glomerular Filtration Rate 155.2 mL/min (90-130); Glucose 115 mg/dL (65-115); Lipase 11 U/L (13-60); Osmolality Calculated 276 mOsm/kg (285-295); Sodium 131 mmol/L (136-145); Total Bilirubin 1.4 mg/dL (0.15-1.2); Total Protein 7.1 g/dL (6.6-8.7)
[2021-10-31 14:51] LABS: Alanine Aminotransferase 16 U/L (0-41); Anion Gap 21.2 (5-19); Aspartate Amino Transferase 25 U/L (0-40); Potassium 5.2 mmol/L (3.5-5.1)
[2021-10-31] MEDS: pantoprazole 40 mg SDV 80 MG IVP (14:53)
[2021-10-31 15:11] LABS: INR 1.13 (0.8-1.2)
[2021-10-31 17:31] LABS: Hematocrit 27.5 % (42.0-52.0); Hemoglobin 8.7 g/dL (11.7-16.6)
[2021-10-31 18:26] LABS: Creatine Phosphokinase 210 U/L (39-308)
--- NOTE | 2021-10-31 18:26 | PM.HP ---
Providers/Chief Complaint Admitting Physician: Prudencio Oscar Primary Care Provider: none Chief Complaint: n/v History of Present Illness Moody Tuttle is a 31 year old male recently seen for heartburn and also rhabdomyolysis. He has been an alcoholic but states he last drank on 10/06/2021. He last used methamphetamines and marijuana at that time also. He does smoke cigarettes 1 pack/day and currently works at the [employer]. He wants full CODE STATUS. Review of Systems Narrative: General no fevers chills weight gain he has had some weight loss Cardiovascular no chest pain palpitations or edema respiratory shortness of breath cough or wheezing GI positive for nausea vomiting blood 4 times today at home but none since he arrived here. He had a bowel movement about 7 hours ago states there is a streak of red in it but he is not sure it was blood may have been just different colored food negative Psych positive for alcoholism Medications/Allergies Home Medications Medication Instructions Recorded Confirmed Last Taken Type pantoprazole 40 mg tablet,delayed 40 mg PO DAILY 28 Days #30 tab 10/10/21 10/31/21 Unknown Rx release Allergies Allergy/AdvReac Type Severity Reaction Status Date / Time No Known Allergies Allergy Unverified 10/09/21 15:25 PFSH Acute PFSH: Medical History Heart murmur Tobacco use disorder Family History Father Hypertension Mother Hypertension Social History Smoking and tobacco status: current every day smoker Alcohol intake: current Vitals/I&O/Wt Last Vital Signs Temp 97.8 F 10/31/21 13:56 Pulse 75 10/31/21 15:00 Resp 16 10/31/21 13:56 BP 113/68 10/31/21 15:00 Pulse Ox 99 10/31/21 13:56 Weight last 48 hrs Weight 68.039 kg Physical Exam Narrative: General well-developed well-nourished male in no acute cardiopulmonary stress CV tachycardic rate normal rhythm pulses normal Lungs clear to auscultation bilaterally Abdomen positive bowel sounds soft nontender nondistended Calves no tenderness cords pedal edema Mentation alert oriented pleasant Psych mood and affect are normal Skin is warm and dry. Data : 10/31/21 17:28 10/31/21 14:15 A&P Assessment and plan (1) Acute GI bleeding: Admitted to the hospital for EGD and serial hematocrit plus IV proton pump inhibitor Status: Acute (2) Tobacco use disorder: Start nicotine patch 21 mg daily Status: Acute (3) Rhabdomyolysis: Historic check CPK Status: Inactive (4) Methamphetamine abuse: Check urine drug screen Status: Acute (5) Leukocytosis: Suspect this is due to active bleeding Status: Acute Attestations Medical Necessity Statement*: Patient needs to be admitted to the hospital for EGD IV proton pump inhibitor and serial hematocrit. He may need to have blood transfusion. Time Spent in Patient Care: Greater than 35 minutes 55 minutes spent in evaluation coronation care for this patient today Coding Level of Care Code Acute Supervisor Furnace Process for Lino Kelly Diagnoses Acute GI bleeding K92.2 Tobacco use disorder F17.200 Rhabdomyolysis M62.82 Methamphetamine abuse F15.10 Leukocytosis D72.829
[2021-10-31 19:53] LABS: Hematocrit 25.1 % (42.0-52.0)
[2021-10-31] MEDS: lactated ringers 1,000 ML 125 ML IV (19:55)
[2021-10-31] MEDS: pantoprazole 40 mg SDV IVP (19:55)
--- NOTE | 2021-10-31 22:13 | PM.HP ---
Providers/Chief Complaint Admitting Physician: Prudencio Oscar MD Chief Complaint: n/v History of Present Illness Moody Tuttle is a 31 year old male who presented to the hospital with 1 day history of nausea vomiting and hematemesis. Patient denies any abdominal pain. He reports last bowel movement was yesterday and was normal. Denies any hematochezia or melena. He was recently in the hospital after a long binge on methamphetamines and alcohol, with heat exposure and rhabdomyolysis. He reports he was vomiting bright red blood and dark clots. He reports he needs to stop drinking and doing drugs. Review of Systems General: Reports: 10 or more systems reviewed and unremarkable except in HPI and below Medications/Allergies Home Medications Medication Instructions Recorded Confirmed Last Taken Type pantoprazole 40 mg tablet,delayed 40 mg PO DAILY 28 Days #30 tab 10/10/21 10/31/21 Unknown Rx release Allergies Allergy/AdvReac Type Severity Reaction Status Date / Time No Known Allergies Allergy Unverified 10/09/21 15:25 PFSH Acute PFSH: Medical History Heart murmur Tobacco use disorder Family History Father Hypertension Mother Hypertension Social History Smoking and tobacco status: current every day smoker Alcohol intake: current Vitals/I&O/Wt Last Vital Signs Temp 97.7 F 10/31/21 19:48 Pulse 81 10/31/21 19:48 Resp 19 H 10/31/21 19:48 BP 112/68 10/31/21 19:48 Pulse Ox 97 10/31/21 19:48 10/31/21 10/31/21 10/31/21 06:59 14:59 22:59 Intake Total 1000 / 1000 Balance 1000 / 1000 Weight last 48 hrs Weight 150 lb Physical Exam Narrative: General : Patient is well developed , no acute distress, oriented x3 Head : Normal cephalic, a-traumatic. Ears : Pinnae and external canal are normal. Hearing is normal. Eyes : PERRLA, Sclera and injection are normal. No conjunctival discharge. Nose : Mucous membranes are without erythema. Throat : buccal mucosa is normal, gums are without significant recession or hypertrophy. Lungs : Equal chest rise bilaterally, no use of accessory muscles, trachea is midline. Cor : Rate and rhythm are normal. Abdomen : Soft, ND, NT, no g/r/m Extremities : No edema, no cyanosis or clubbing, dorsalis pedis pulses are present bilaterally, non-tender to palpation of calves. Upper extremities are normal bilaterally. Back : non-tender to palpation, no CVA tenderness. Neuro : CN II - XII intact, Upper and lower extremities have equal and full strength Data : 11/01/21 05:30 11/01/21 05:30 A&P Assessment and plan (1) Acute GI bleeding: Status: Acute (2) Acute blood loss anemia: Status: Acute Plan Admit to medical surgical floor Protonix twice daily N.p.o. EGD See orders The risks and benefits of the procedure, including bleeding, infection, intestinal perforation requiring surgery, missed lesion, or explained to the patient. He is understanding of the risks and wishes to proceed. Attestations Medical Necessity Statement*: Patient has acute blood loss anemia secondary to hematemesis. He will need EGD and monitoring Coding Level of Care Code Acute Digital Experience Manager for [facility] Fwd Diagnoses Acute GI bleeding K92.2 Acute blood loss anemia D62
[2021-10-31 22:36] LABS: Glucose Point of Care 173 mg/dL (70-110)
--- NOTE | 2021-10-31 22:38 | P.PNCC_ITS ---
Critical Care Event Note The high probability of a clinically significant, sudden or life threatening deterioration of the patient's [] system(s) required my full and direct attention, intervention and personal management. The critical care time is as shown. This time is in addition to time spent performing any reported procedures but includes the following: [x] Data and vital sign review and interpretation [x] Patient assessment, examination and intervention [x] Documentation [x] Medication orders and management Rapid response was called at roughly 1020 on 10/31/2021, patient has been admitted to [facility] for concern for upper GI bleed, last hemoglobin 8, patient was up using the bathroom, when he had a significant episode of bloody emesis. He had fallen to the floor, patient upon arrival was on the floor, pale, diaphoretic, answering all questions appropriately, he had roughly 2 L of bloody emesis with clots in it, dark red blood. Patient was moved by nursing staff into bed, his pulse was 128, blood pressures 110/60, saturating high 90s room air, alert oriented x3, he denies any IV drug use, denies any alcohol use, denies a history of esophageal varices, denies a history of alcoholism. Denies using any ibuprofen or any NSAIDs at home. Patient is receiving fluid bolus, will be moved to the ICU, will start him on Protonix, octreotide drip, monitor his vitals closely, monitor for further bloody emesis. We will give him 2 units of blood as his hemoglobin is 8.0, needed roughly had 2 L of blood loss. 1 unit FFP. Monitor hemodynamics closely. We will consider further fluid boluses or pressor therapy based on clinical progress. Critical Care Time Code activated: No Critical Care Time (min): 25 Coding Level of Care Code Acute Pad Extractor Tender for Lino Kelly
--- NOTE | 2021-10-31 22:43 | PC.NURSE ---
Pt transferred to ICU at this time. Pt went into bathroom and fell. Cord was pulled for help. Pt vomited very large amount of bright red blood in floor. Rapid response called. Pt was transferred from bathroom floor to bed. Labs were collected, EKG done, VS taken and stable, second IV started to L AC. Verbal order from Dr. Hogue taken for emergency 2 units of blood to be infused. Order entered and blood bank called.
[2021-10-31 22:50] LABS: Hematocrit 18.8 % (42.0-52.0); Hemoglobin 5.8 g/dL (11.7-16.6)
[2021-10-31] MEDS: ondansetron 2 mg/ML SDV 2 mL 4 MG IVP (23:12)
--- NOTE | 2021-10-31 23:12 | XRR_ITS ---
PROCEDURE INFORMATION: Exam: XR Chest Exam date and time: 10/31/2021 11:44 PM Age: 31 years old Clinical indication: Device placement; Ng tube; Patient HX: Check S/P ng placement; Additional info: Ng tube placement TECHNIQUE: Imaging protocol: XR of the chest. Views: 1 view. COMPARISON: CR XR chest 1V portable [id number] 10/09/2021 5:36 PM FINDINGS: Tubes, catheters and devices: Enteric tube tip below the diaphragm over the stomach. Lungs: Unremarkable. No consolidation. Pleural spaces: Unremarkable. No pleural effusion. No pneumothorax. Heart/Mediastinum: Unremarkable. No cardiomegaly. Bones/joints: Unremarkable. XR/XR chest 1V portable [id number] IMPRESSION: Enteric tube tip below the diaphragm over the stomach.
[2021-10-31] MEDS: sodium chloride 0.9% (100 ml) 100 ML (23:30)
[2021-10-31] MEDS: octreotide 500 MCG in sodium chloride 0.9% (100 ml) 100 ML 10.1 MCG IV (23:30)
[2021-11-01] VITALS (53 sets, daily range): BP systolic 103–158; BP diastolic 56–97; PULSE 63–144; RESP 11–27; TEMP 36.6–38.9; O2SAT 92–100
[2021-11-01] MEDS: sodium chloride 0.9% 1,000 ML 150 ML IV (00:52)
[2021-11-01 04:54] LABS: Amphetamines Screen Urine Negative (Negative); Barbiturates Screen Urine Negative (Negative); Benzodiazepines Screen Urine Negative (Negative); Cocaine Screen Urine Negative (Negative); Opiate Screen Urine Negative (Negative); PCP Screen Urine Negative (Negative); THC Screen Urine Positive (Negative)
[2021-11-01 05:44] LABS: Basophils # 0.1 10^3/uL (0.0-0.1); Basophils % 0.5 %; Eosinophils # 0.1 10^3/uL (0.0-0.8); Eosinophils % 1.2 %; Hematocrit 24.4 % (42.0-52.0); Hemoglobin 8.2 g/dL (11.7-16.6); Lymphocytes # 3.4 10^3/uL (0.8-4.8); Lymphocytes % 30.3 %; Mean Corpuscular HGB Conc 33.6 g/dL (30.0-36.0); Mean Corpuscular Hemoglobin 28.5 pg (28.0-34.0); Mean Corpuscular Volume 84.7 fl (80-94); Mean Platelet Volume 10.6 fL (7.4-10.4); Neutrophils # 6.44 10^3/uL (1.8-7.7); Neutrophils % 57.7 %; Nucleated Red Blood Cells % 0 %; Platelet Count 212 10^3/cmm (130-400); Red Blood Count 2.88 10^6/uL (4.1-5.3); Red Cell Distribution Width 15.7 % (12.1-15.1); White Blood Count 11.2 10^3/uL (4.0-10.0)
[2021-11-01] MEDS: pantoprazole 40 mg SDV IVP ×2 (06:03→18:22)
[2021-11-01 06:07] LABS: Alanine Aminotransferase 10 U/L (0-41); Albumin Level 2.9 g/dL (3.5-5.2); Alkaline Phosphatase 34 IU/L (40-130); Anion Gap 14.3 (5-19); Aspartate Amino Transferase 14 U/L (0-40); Blood Urea Nitrogen 19 mg/dL (6-20); Calcium 7.4 mg/dL (8.5-10.5); Carbon Dioxide 20 mmol/L (22-29); Chloride 103 mmol/L (98-107); Globulin 1.6 g/dL (1.3-4.6); Glomerular Filtration Rate 155.2 mL/min (90-130); Glucose 108 mg/dL (65-115); Magnesium 1.7 mg/dL (1.7-2.3); Osmolality Calculated 279 mOsm/kg (285-295); Phosphorus 2.6 mg/dL (2.5-4.5); Potassium 4.3 mmol/L (3.5-5.1); Sodium 133 mmol/L (136-145); Total Bilirubin 2.4 mg/dL (0.15-1.2); Total Protein 4.5 g/dL (6.6-8.7)
[2021-11-01 06:11] LABS: Creatinine Clr Calc Pharmacy 151.9687
--- NOTE | 2021-11-01 06:55 | PC.NURSE ---
Bedside report completed with TAE Angelo
--- NOTE | 2021-11-01 08:10 | W.PM.OPSUD ---
Surgery/Procedure H&P Update DATE OF PROCEDURE: November 01, 2021 DATE H&P PERFORMED: 10/31/21 CHANGES TO PREVIOUS DOCUMENTATION: NONE PREOP DIAGNOSIS: Acute blood loss anemia PRIMARY INDICATION FOR PROCEDURE: acute blood loss anemia PLANNED PROCEDURE: Operation Date: 11/01/21 08:00 Proposed Procedures p EGD(Not Applicable) - Gulshan Frias DO
[2021-11-01] MEDS: sodium chloride 0.9% 1,000 ML 30 ML IV (08:19)
--- NOTE | 2021-11-01 08:26 | ANES.PREANE2 ---
Pre-Anesthetic Assessment Height/Weight: Height 1.6 m Weight 68.039 kg Temp Pulse Resp BP Pulse Ox 98.6 F 70 18 133/72 98 11/01/21 08:12 11/01/21 08:12 11/01/21 08:12 11/01/21 08:12 11/01/21 08:12 Preop Diagnosis: Acute blood loss anemia Operation Date: 11/01/21 08:00 Proposed Procedures p EGD(Not Applicable) - Gulshan Frias DO Familial anesthetic complications: none Was Beta Jennifer taken within 24 hours: N/A Was Clonidine taken within 24 hours: N/A Social Alcohol (Patient states has not drank in 3 weeks, ETOH abuse ) and Tobacco Hx of methamphetamine use, current cannabis use Exam alert, oriented x 3, clear to auscultation bilaterally and regular rate & rhythm Airway Submandibular: within normal limits Cervical ROM: within normal limits Mallampati: Class II Dentition: chipped Pulmonary None reported CV/HEM Anemia METS > 4 Rhabdomyolysis Renal US 09/2021 WNL Hepatic Transaminitis GI Gastroesophageal Reflux Disease Acute GI bleed Metabolic None reported Musc/skel None reported Neuropsych None reported Anesthetic Plan ASA status: 3 (31 year old with acute GI bleed, hx of ETOH and methamphetamine abuse, daily smoking. ) Anesthesia: Anesthesia Evaluation and General Other: I discussed with the patient risks, goals, and benefits of MAC and general anesthesia. We discussed spectrum of MAC anesthesia including conversion to general as well as possibility of recall of intraoperative stimuli including discomfort/pain. Patient agrees to proceed with MAC. Risk of > 500 ml blood loss (7ml/kg in children): No Medications/Allergies Home Medications Medication Instructions Recorded Confirmed Last Taken Type pantoprazole 40 mg tablet,delayed 40 mg PO DAILY 28 Days #30 tab 10/10/21 10/31/21 Unknown Rx release Allergies Allergy/AdvReac Type Severity Reaction Status Date / Time No Known Allergies Allergy Unverified 10/09/21 15:25 Current Medications Generic Name Dose Route Start Last Admin Trade Name Freq PRN Reason Stop Dose Admin Sodium Chloride 1,000 mls @ 150 mls/hr 10/31/21 18:15 11/01/21 00:52 Sodium Chloride 0.9% IV 150 mls/hr .Q6H40M AISSATOU Administration Octreotide Acetate 500 mcg/ 101 mls @ 10.1 mls/hr 10/31/21 22:30 10/31/21 23:30 Sodium Chloride IV 50 mcg/hr .Q10H AISSATOU 10.1 mls/hr Administration 50 MCG/HR Sodium Chloride 1,000 mls @ 30 mls/hr 11/01/21 08:15 11/01/21 08:19 Sodium Chloride 0.9% IV 11/02/21 08:14 30 mls/hr .Q24H AISSATOU Administration Ondansetron HCl 4 mg 10/31/21 18:09 10/31/21 23:12 Ondansetron 2 Mg/Ml Sdv 2 Ml IVP 4 mg Q8H PRN Administration vomiting, or N/V if npo Pantoprazole Sodium 40 mg 10/31/21 18:15 11/01/21 06:03 Pantoprazole 40 Mg Sdv IVP 40 mg Q12H AISSATOU Administration Sucralfate 1 gm 10/31/21 22:45 10/31/21 23:29 Sucralfate 1 Gm Tablet PO Not Given Q12H AISSATOU PFSH Anesthesia Medical History Heart murmur Rhabdomyolysis Tobacco use disorder Family History Father Hypertension Mother Hypertension Social History Smoking and tobacco status: current every day smoker Alcohol intake: current Data Anesthesia : 11/01/21 05:30 11/01/21 05:30 Short CBC 10/31/21 10/31/21 10/31/21 Range/Units 14:15 17:28 19:39 WBC 19.0 H (4.0-10.0) 10^3/uL Hgb 11.0 L 8.7 L 8.0 L (11.7-16.6) g/dL Hct 33.4 L 27.5 L 25.1 L (42.0-52.0) % MCV 79.1 L (80-94) fl Plt Count 446 H (130-400) 10^3/cmm Neut % (Auto) 80.7 % Neut # (Auto) 15.35 H (1.8-7.7) 10^3/uL 10/31/21 11/01/21 Range/Units 22:33 05:30 WBC 11.2 H (4.0-10.0) 10^3/uL Hgb 5.8 L* 8.2 L D (11.7-16.6) g/dL Hct 18.8 L* 24.4 L (42.0-52.0) % MCV 84.7 D (80-94) fl Plt Count 212 D (130-400) 10^3/cmm Neut % (Auto) 57.7 % Neut # (Auto) 6.44 (1.8-7.7) 10^3/uL BMP 10/31/21 11/01/21 14:15 05:30 Sodium 131 L 133 L Potassium 5.2 H 4.3 Chloride 94 L 103 Carbon Dioxide 21 L 20 L BUN 20 19 Creatinine 0.6 L 0.6 L Glucose 115 108 Calcium 9.1 7.4 L Cardiac Enzymes 10/31/21 Range/Units 14:10 Creatine Kinase 210 (39-308) U/L Liver Function 10/31/21 11/01/21 Range/Units 14:15 05:30 Total Bilirubin 1.4 H 2.4 H (0.15-1.2) mg/dL AST 25 14 (0-40) U/L ALT 16 10 (0-41) U/L Alkaline Phosphatase 54 34 L (40-130) IU/L Albumin 4.5 2.9 L (3.5-5.2) g/dL Blood Bank 10/31/21 14:51 Blood Type A Positive Rho(D) Type Positive Antibody Screen Negative Coags 10/31/21 14:51 PT 14.80 INR 1.13 Cardiac Studies: No Data to Display
--- NOTE | 2021-11-01 09:07 | PM.MISC ---
Miscellaneous Note Note: Called to bedside for assistance during EGD. On arrival patient found intubated, sat 100% SpO2, p 113, hand ventilated with propofol sedation. Per report patient acutely desaturated during EGD. EGD stopped, patient mask ventilated by GAS SHOVEL OPERATOR with good chest rise and +ETCO2. NG suctioned prior to case, however given blood in esophagus from visualized Germaine Flannery tear and acute desaturation aspiration suspected by GAS SHOVEL OPERATOR and patient intubated. Sats recovered to 100% SpO2. Airway pressures normal. Taken to ICU full monitors, sedated, hand ventilated. I discussed case with Doctor Balderas, handoff accepted.
--- NOTE | 2021-11-01 09:29 | PC.CHAP ---
Pastoral Care Encounter/Spiritual Assessment Type of Contact [] Declined tube molder fiberglass visit [] Patient/Family/Request visit [] Outpatient visit [] Follow-up visit [] Physician referral [] Code/Alert [x] Routine visit [] Staff referral [] Actively dying [] Patient sleeping [] Family support [] [x] Out of room [] Palliative care [] [] Receiving care in room [] Pre-surgical visit [] Trauma [] Long length of stay [x] ICU visit [] Other: Relational/Emotional Strength [] Patient feels connected with others/family/visitors/staff [] Distress [] Loneliness/isolation [] Abandonment Spirituality of Patient [] Person of Martina [] Attends Caodaism of their Martina [] Believes in Prayer [] Reads Bible or Confucianism materials [] There are Spiritual issues to be addressed Gang Mower Operator Interventions [x] Prayer [] Active listening [] Non-anxious presence [] Spiritual/emotional support [] Crisis/trauma care [] Spiritual counseling [] Bereavement support [] Provided bereavement packet [] Provided Bible/devotional materials [] Provided toy/stuffed animal, coloring book to patient or family member [] Provided Communion [] Anointing/[place]calister [] Salvation [x] Completed spiritual assessment [] Other: Impact on Illness or Injury [] Angry [] Fearful [] Anxious [] Often cries [] Exhaustion [] Unable to work [] Unable to attend advent [] Unable to walk/stand [] Unable to read [] Unable to drive [] Unable to eat/drink [] Unable to sleep [] Unable to be with family [] Patient intubated [] Other: Summary Time spent with patient
--- NOTE | 2021-11-01 09:30 | PC.NURSE ---
Pt arrived back to ICU from GI lab. He is intubated. NO sedation, awaiting orders. Bright red drainage in NG.
--- NOTE | 2021-11-01 09:35 | PC.NURSE ---
During the procedure the patient began to stat down. The procedure was stopped, suctioning and ambu bag were used but no improvement. Patient was intubated and then he began to have increase in stats. Patient tolerated that intubation well. He was transferred to ICU after intubation with ambu and monitor. Report was given to his nurse and a vent was being set up for the patient.
[2021-11-01] MEDS: propofol 1,000 MG/100 ML INJ 8.2 MG (09:54)
--- NOTE | 2021-11-01 10:10 | XRR_ITS ---
PROCEDURE INFORMATION: Exam: XR Chest Exam date and time: 11/01/2021 10:25 AM Age: 31 years old Clinical indication: Device placement; Ett placement (vent status); Additional info: Intubated and aspiration ugi bleed TECHNIQUE: Imaging protocol: XR of the chest. Views: 1 view. COMPARISON: CR (CHEST, ) 10/31/2021 11:44 PM FINDINGS: Lungs: Unremarkable. No consolidation. Pleural spaces: Unremarkable. No pleural effusion. No pneumothorax. Heart/Mediastinum: Unremarkable. No cardiomegaly. Bones/joints: Unremarkable. Endotracheal tube is in place 21 mm above the manish. There is an NG tube present extending into the stomach. Comparison to prior examination similar findings are seen XR/XR chest 1V portable [id number] IMPRESSION: No acute findings. NG tube is in the stomach. endotracheal tube is above the manish
--- NOTE | 2021-11-01 10:20 | P.PN_ITS ---
Subjective Subjective: HadPatient mated emesis and hypotension last night so transferred to the ICU. Hematocrit dropped 44 down to 18.8 with estimated 2 L of bloody emesis. Patient received 2 units of blood and this morning blood count 24.4. He went to endoscopy but had aspiration and bronchospasm with desaturation so was emergently intubated. He is now in the unit with propofol and fentanyl sedation on ventilator. Oxygen saturation 100% with PEEP 5 FiO2 70% Vitals/I&O/Wt Last Vital Signs Temp 98.6 F 11/01/21 08:12 Pulse 70 11/01/21 08:12 Resp 14 11/01/21 09:23 BP 133/72 11/01/21 08:12 Pulse Ox 100 11/01/21 09:23 10/31/21 11/01/21 11/01/21 22:59 06:59 14:59 Intake Total 1240 / 1240 2057 / 3297 Output Total 850 / 850 25 / 25 Balance 1240 / 1240 1207 / 2447 -25 / -25 Weight last 48 hrs Weight 68.039 kg Physical Exam Narrative: General well-developed well-nourished male in no acute cardiopulmonary stress CV tachycardic rate normal rhythm pulses normal Lungs coarse breath sounds bilaterally diminished in left base Abdomen positive bowel sounds soft nontender nondistended Calves no tenderness cords pedal edema Sedated Neuro no response to verbal and mild noxious stimuli. Pupils are equally round and reactive to light accommodation Skin is warm and dry. Data : 11/01/21 05:30 11/01/21 05:30 A&P Assessment and plan (1) Acute GI bleeding: Resume proton pump inhibitor and octreotide. Resume IV fluids. Portable chest x-ray now and repeat CBC. I would like to have EGD completed while the patient is intubated here on the unit. Will speak with Dr. Frias Status: Acute (2) Tobacco use disorder: Start nicotine patch 21 mg daily Status: Acute (3) Rhabdomyolysis: This was historic no CPK elevation this visit Status: Inactive (4) Methamphetamine abuse: Check urine drug screen negative consistent with patient's history of no recent use Status: Acute (5) Leukocytosis: Suspect this is due to active bleeding Status: Acute Attestations Medical Necessity Statement*: Patient needs to have his GI bleed stabilized Critical Care Time: The high probability of a clinically significant, sudden or life threatening deterioration of the patient's [pulmonary and gastrointestinal system(s) required my full and direct attention, intervention and personal management. The critical care time is as shown. This time is in addition to time spent performing any reported procedures but includes the following: [x] Data and vital sign review and interpretation [x] Patient assessment, examination and intervention [x] Documentation [x] Medication orders and management Critical Care Time (min): 50 Coding Level of Care Code Acute Oxygen Furnace Operator for [facility] Fwd Diagnoses Acute GI bleeding K92.2 Tobacco use disorder F17.200 Rhabdomyolysis M62.82 Methamphetamine abuse F15.10 Leukocytosis D72.829
[2021-11-01 10:44] LABS: ABG PH Result 7.33 (7.35-7.45); Alveolar-Arterial Oxygen Gradi 24.3 mmHg (5-10); Arterial Blood Gas Hematocrit 22.6 % (42-52); Base Excess ABG -2.1 mmol/L (-2.0-2.0); Blood Gas Allen Test Pos; Blood Gas Operator Identificat CAK; Blood Gas Sample Site Radial, right; Blood Gas Sample Type Arterial; Blood Gas Tidal Volume 0.45; Carboxyhemoglobin 1.9 %THgb (0.4-20.1); HCO3 ABG 23.8 mmol/L (22-26); HGB O2 Sat 96.6 % (95-100); Ionized Calcium Level - ABG 1.1 mmol/L (1.1-1.4); Oxygen Device VENT; Oxygen Saturation ABG 99.5; Potassium Level - ABG 4.1 mmol/L (3.5-5.0); Total Hemoglobin 7.4 g/dL (14-18)
[2021-11-01] MEDS: octreotide 500 MCG in sodium chloride 0.9% (100 ml) 100 ML 10.1 MCG IV (10:54)
[2021-11-01 10:57] LABS: Basophils # 0.1 10^3/uL (0.0-0.1); Basophils % 0.4 %; Eosinophils # 0.1 10^3/uL (0.0-0.8); Eosinophils % 0.6 %; Hematocrit 22.4 % (42.0-52.0); Hemoglobin 7.3 g/dL (11.7-16.6); Lymphocytes # 2.5 10^3/uL (0.8-4.8); Lymphocytes % 15.1 %; Mean Corpuscular HGB Conc 32.6 g/dL (30.0-36.0); Mean Corpuscular Hemoglobin 28.1 pg (28.0-34.0); Mean Corpuscular Volume 86.2 fl (80-94); Mean Platelet Volume 10.6 fL (7.4-10.4); Monocytes # 0.8 10^3/uL (0.2-0.9); Monocytes % 4.6 %; Neutrophils # 12.78 10^3/uL (1.8-7.7); Neutrophils % 78.3 %; Nucleated Red Blood Cells % 0 %; Platelet Count 230 10^3/cmm (130-400); Red Cell Distribution Width 15.4 % (12.1-15.1); White Blood Count 16.4 10^3/uL (4.0-10.0)
[2021-11-01] MEDS: phytonadione (ADULT) 5 MG in sodium chloride 0.9% 50 ML 151.5 MG IV (10:59)
[2021-11-01] MEDS: propofol 1,000 MG/100 ML INJ 20.41 MG IV (12:44)
[2021-11-01 13:51] LABS: Iron 201 ug/dL (59-158)
--- NOTE | 2021-11-01 14:02 | ANE.PACU2 ---
Inpatient post-anesthesia follow up: Airway intact: Yes Vital signs: Temperature 98.6 F Pulse Rate [Orthos tatic 95 Standing] Pulse Rate [Orthos tatic 80 Sitting] Pulse Rate [Orthos tatic Lying] 75 Pulse Rate 70 Respiratory Rate 14 Blood Pressure [Or thostatic 114/68 Standing] Blood Pressure [Or thostatic 117/80 Sitting] Blood Pressure [Or thostatic 113/68 Lying] Blood Pressure 133/72 Pulse Oximetry 99 Oxygen Delivery Me thod Room Air Oxygen Flow Rate Fraction of Inspir ed Oxygen 30 Hydration adequate: Yes Nausea and vomiting: No Pain level: 1 Mental status: Altered (Inbutabted and sedated )
[2021-11-01 14:03] LABS: Basophils # 0.1 10^3/uL (0.0-0.1); Basophils % 0.4 %; Eosinophils # 0.1 10^3/uL (0.0-0.8); Eosinophils % 0.5 %; Hematocrit 21.7 % (42.0-52.0); Lymphocytes % 14.7 %; Mean Corpuscular HGB Conc 32.3 g/dL (30.0-36.0); Mean Corpuscular Hemoglobin 28.2 pg (28.0-34.0); Mean Corpuscular Volume 87.5 fl (80-94); Mean Platelet Volume 10.5 fL (7.4-10.4); Monocytes # 0.8 10^3/uL (0.2-0.9); Monocytes % 3.8 %; Neutrophils # 16.38 10^3/uL (1.8-7.7); Nucleated Red Blood Cells % 0 %; Platelet Count 206 10^3/cmm (130-400); Red Blood Count 2.48 10^6/uL (4.1-5.3); Red Cell Distribution Width 15.5 % (12.1-15.1); White Blood Count 20.5 10^3/uL (4.0-10.0)
[2021-11-01 14:27] LABS: Percent Saturation 92.2 % (20-50); Total Iron Binding Capacity 218 mcg/dl; Unsaturated Iron Binding < 17 ug/dL (112-347)
--- NOTE | 2021-11-01 15:00 | PC.NURSE ---
Pt wild, squirming all over bed, about ready to pull ETT. Dr Oscar, in unit, said to just go ahead and extubate. Fentanyl and Propofol gtts stopped. Pt extubated to room air. NG tube remains in place in left nostril.
[2021-11-01] MEDS: lactated ringers 1,000 ML 999 ML IV (15:15)
[2021-11-01] MEDS: ampicillin-sulbactam 3 GM in sodium chloride 0.9% (plus) 50 ML IV ×2 (15:16→20:45)
--- NOTE | 2021-11-01 15:33 | PC.NURSE ---
Addendum entered by Marie Silverman RN 11/01/21 16:06: Witnessed by this nurse Original Note: Fentanyl gtt wasted over 164ml, See MAR for exact amount. Witnessed by Marie Silverman RN>
--- NOTE | 2021-11-01 16:00 | PC.NURSE ---
Jurgen Parker called for update. Update provided.
--- NOTE | 2021-11-01 16:14 | PC.NURSE ---
Blood transfusion delayed due to infusing Transexemic acid, ampicillin and Octreotide and 2 IV sites.
[2021-11-01] MEDS: sodium chloride 0.9% (100 ml) 100 ML (17:00)
--- NOTE | 2021-11-01 17:15 | PC.NURSE ---
TAR vital signs see vital sign intervention/assignment
--- NOTE | 2021-11-01 18:13 | PC.NURSE ---
Shift summary: Pt remains alert and oriented. Went to GI lab this morning. Per handoff report, EGD started, sats decreased, EGD stopped ( noted his stomach full of blood) and he was intubated. He has been extubated at 1500. HIs NG remains intake in right nostril, bloody drainage noted. Pt has had 4 melena and/or tarry stools today. He still has Octreotide infusing. He received a bolus of LR. Has IV fluids with potassium infusing. He has received Transexemic acid and vitamin K. Antibiotics started. He now has a unit of PRBCs infusing ( he has had 3 units total). Mcdonnell inserted today. Urine output adequate.
--- NOTE | 2021-11-01 19:27 | PC.NURSE ---
Bedside report completed with Gladis Gonzalez RN.
[2021-11-01 23:01] LABS: Hemoglobin 6.9 g/dL (11.7-16.6); Mean Corpuscular HGB Conc 34.2 g/dL (30.0-36.0); Mean Corpuscular Hemoglobin 29.2 pg (28.0-34.0); Mean Corpuscular Volume 85.6 fl (80-94); Mean Platelet Volume 10.6 fL (7.4-10.4); Platelet Count 168 10^3/cmm (130-400); Red Blood Count 2.36 10^6/uL (4.1-5.3); Red Cell Distribution Width 15.2 % (12.1-15.1); White Blood Count 27.2 10^3/uL (4.0-10.0)
[2021-11-01 23:21] LABS: Hematocrit 20.2 % (42.0-52.0)
[2021-11-01 23:24] LABS: Absolute Neutrophil 23.1 10^3/cmm (1.4-6.5); Absolute Segmented Neutrophil 22.8 10/cmm (1.6-7.1); Band Neutrophils Absolute 0.3 10^3/cmm (0.0-1.2); Eosinophils 0 %; Lymphocytes 12 %; Lymphocytes Absolute 3.3 10^3/cmm (1.2-3.4); Monocytes Absolute 0.8 10^3/cmm (0.1-0.6); Platelet Estimate Normal (Normal); Segmented Neutrophils 84 %; Total Cells Counted 100 (0-100)
[2021-11-01] MEDS: acetaminophen 1,000 MG/100 ML PIGGYBACK 400 MG IV (23:40)
[2021-11-02] VITALS (25 sets, daily range): BP systolic 106–126; BP diastolic 50–83; PULSE 62–91; RESP 11–20; TEMP 36.6–37.6; O2SAT 90–100
[2021-11-02] MEDS: sodium chloride 0.9% (100 ml) 100 ML 999 ML (02:45)
[2021-11-02] MEDS: ampicillin-sulbactam 3 GM in sodium chloride 0.9% (plus) 50 ML IV ×4 (04:00→20:45)
[2021-11-02 04:56] LABS: Basophils # 0.1 10^3/uL (0.0-0.1); Basophils % 0.5 %; Eosinophils # 0.2 10^3/uL (0.0-0.8); Eosinophils % 1.1 %; Hematocrit 23.4 % (42.0-52.0); Hemoglobin 7.8 g/dL (11.7-16.6); Lymphocytes # 3.4 10^3/uL (0.8-4.8); Lymphocytes % 17.6 %; Mean Corpuscular HGB Conc 33.3 g/dL (30.0-36.0); Mean Corpuscular Hemoglobin 28.6 pg (28.0-34.0); Mean Corpuscular Volume 85.7 fl (80-94); Mean Platelet Volume 10.4 fL (7.4-10.4); Monocytes # 1.5 10^3/uL (0.2-0.9); Monocytes % 7.4 %; Neutrophils % 72.2 %; Nucleated Red Blood Cells % 0 %; Platelet Count 170 10^3/cmm (130-400); Red Blood Count 2.73 10^6/uL (4.1-5.3); Red Cell Distribution Width 14.6 % (12.1-15.1); White Blood Count 19.5 10^3/uL (4.0-10.0)
[2021-11-02 05:13] LABS: INR 1.19 (0.8-1.2)
[2021-11-02 05:25] LABS: Anion Gap 8.8 (5-19); Blood Urea Nitrogen 8 mg/dL (6-20); Calcium 7.6 mg/dL (8.5-10.5); Carbon Dioxide 27 mmol/L (22-29); Chloride 106 mmol/L (98-107); Creatinine Clr Calc Pharmacy 151.9687; Glomerular Filtration Rate 155.2 mL/min (90-130); Glucose 130 mg/dL (65-115); Magnesium 1.8 mg/dL (1.7-2.3); Osmolality Calculated 286 mOsm/kg (285-295); Potassium 3.8 mmol/L (3.5-5.1); Sodium 138 mmol/L (136-145)
[2021-11-02] MEDS: octreotide 500 MCG in sodium chloride 0.9% (100 ml) 100 ML 10.1 MCG IV (05:53)
[2021-11-02] MEDS: pantoprazole 40 mg SDV IVP ×2 (06:00→17:19)
[2021-11-02] MEDS: nicotine 21 mg Patch 1 PATCH TRANSDERMA (10:06)
--- NOTE | 2021-11-02 12:38 | PC.NURSE ---
Discontinued NG tube and started on clear liquids per Dr. Frias.
--- NOTE | 2021-11-02 13:03 | P.PN_ITS ---
Subjective Subjective: Patient was extubated overnight. He reports no abdominal pain. He is having bowel movements but says he has not looked at them. Denies any nausea or emesis. Vitals/I&O/Wt Last Vital Signs Temp 98.5 F 11/02/21 12:00 Pulse 91 11/02/21 12:00 Resp 12 11/02/21 12:00 BP 126/77 11/02/21 12:00 Pulse Ox 97 11/02/21 12:00 11/01/21 11/02/21 11/02/21 22:59 06:59 14:59 Intake Total 2309.38 / 2506.709 1360 / 3866.709 335 / 335 Output Total 1250 / 1900 950 / 2850 Balance 1059.38 / 606.709 410 / 1016.709 335 / 335 Weight last 48 hrs Weight 150 lb Physical Exam Narrative: General : Patient is well developed , no acute distress, oriented x3 Head : Normal cephalic, a-traumatic. Ears : Pinnae and external canal are normal. Hearing is normal. Eyes : PERRLA, Sclera and injection are normal. No conjunctival discharge. Nose : Mucous membranes are without erythema. Throat : buccal mucosa is normal, gums are without significant recession or hypertrophy. Lungs : Equal chest rise bilaterally, no use of accessory muscles, trachea is midline. Cor : Rate and rhythm are normal. Abdomen : Soft, ND, NT, no g/r/m Extremities : No edema, no cyanosis or clubbing, dorsalis pedis pulses are present bilaterally, non-tender to palpation of calves. Upper extremities are normal bilaterally. Back : non-tender to palpation, no CVA tenderness. Neuro : CN II - XII intact, Upper and lower extremities have equal and full strength Urinary Catheter Management: Mcdonnell: Cath Placed During This Visit: yes Reason for Continuing Indwelling Catheter: Accurate Measurement of Urinary Output in Critically Ill Patients Urinary Catheter Date of Insertion: 11/01/21 Urinary Catheter Time of Insertion: 12:35 Data : 11/02/21 04:40 11/02/21 04:40 Micro: Microbiology 11/01/21 11:10 Gram Stain - Final Sputum - Endotracheal Tube Aspirate A&P Assessment and plan (1) Acute blood loss anemia: Status: Acute (2) Acute GI bleeding: Status: Acute (3) Germaine-Flannery tear: Status: Acute Plan No gastritis seen on EGD but continue Protonix twice daily DC NG tube and start clear liquids DC Mcdonnell A.m. labs Medicine following Attestations Medical Necessity Statement*: Patient still with acute blood loss anemia. He will need his diet slowly advanced and IV Protonix. 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
--- NOTE | 2021-11-02 14:08 | P.PN_ITS ---
Subjective Subjective: Seen this morning. NG tube in place draining bile. Patient denies any soreness around his abdomen or chest area. He states he feels well. He states he was previously here and then went home and had to come back because of intractable nausea vomiting and that he vomited blood and now he is in the ICU. He feels a lot better compared to when he first got here however. Patient still on octreotide drip. Protonix drip has been stopped and switched to IV pushes at this point. He states he was unable to make his own medical decisions we should call his dad. Hemoglobin 7.8. Vitals/I&O/Wt Last Vital Signs Temp 98.5 F 11/02/21 12:00 Pulse 91 11/02/21 12:00 Resp 12 11/02/21 12:00 BP 126/77 11/02/21 12:00 Pulse Ox 97 11/02/21 12:00 11/01/21 11/02/21 11/02/21 22:59 06:59 14:59 Intake Total 2309.38 / 2506.709 1360 / 3866.709 335 / 335 Output Total 1250 / 1900 950 / 2850 Balance 1059.38 / 606.709 410 / 1016.709 335 / 335 Physical Exam Narrative: General: Alert oriented x3, patient seen laying in bed appearing comfortable, NG tube in place. HEENT: Normocephalic, atraumatic, EOMI, breathing normally Cardio: Regular rate rhythm, normal S1-S2, no murmurs rubs gallops, Respiratory: Good bilateral air entry, no wheezes no rhonchi appreciated GI: Abdomen soft, nontender, nondistended, bowel sounds + Behavior: Appropriate and cooperative Extremities: no edema, no cyanosis Urinary Catheter Management: Mcdonnell: Cath Placed During This Visit: yes Reason for Continuing Indwelling Catheter: Accurate Measurement of Urinary Output in Critically Ill Patients Urinary Catheter Date of Insertion: 11/01/21 Urinary Catheter Time of Insertion: 12:35 Data : 11/02/21 04:40 11/02/21 04:40 Micro: Microbiology 11/01/21 11:10 Gram Stain - Final Sputum - Endotracheal Tube Aspirate A&P Assessment and plan (1) Germaine-Flannery tear: Status: Acute (2) Acute blood loss anemia: Status: Acute (3) Acute GI bleeding: Status: Acute (4) Tobacco use disorder: Status: Acute (5) Rhabdomyolysis: Status: Inactive (6) Methamphetamine abuse: Status: Acute Plan #Acute blood loss anemia secondary to Germaine-Flannery tear #Acute GI bleed #Vent dependent respiratory failure?extubated #Nicotine dependence #Methamphetamine abuse #Leukocytosis #Possible aspiration event ? Stop octreotide drip today. Continue Protonix 40 IV twice daily ? EGD does not show any esophageal varices. Germaine-Flannery tear noted. ? Take a Mcdonnell catheter today, take out NG tube ? Start clear liquids ? Possible aspiration event during vomitting. Check CXR today. Leukocytosis present. Will check procalcitonin. Will cover with Unasyn for now. Leukocytosis could also be due to stress response. -So far patient has received 4 unit packed RBC with no units of FFP as reported by the nurse. I will do 1 unit of FFP today. Full code DVT prophylaxis: SCDs Attestations Medical Necessity Statement*: Require 48-hour stay for management of the above. We will start clear liquids today. We will advance diet as tolerated. Continue to monitor hemoglobin. Coding Level of Care Code Acute Chain Testing Machine Operator for g Fwd Diagnoses Germaine-Flannery tear K22.6 Acute blood loss anemia D62 Acute GI bleeding K92.2 Tobacco use disorder F17.200 Rhabdomyolysis M62.82 Methamphetamine abuse F15.10
[2021-11-02 14:48] LABS: Procalcitonin 0.44 ng/mL (0-0.5)
[2021-11-02] MEDS: morphine 4 mg/mL SDV 1 mL 1 MG IVP (22:21)
[2021-11-03] VITALS (26 sets, daily range): BP systolic 95–132; BP diastolic 55–71; PULSE 47–86; RESP 6–23; TEMP 36.6–36.9; O2SAT 96–100
--- NOTE | 2021-11-03 00:01 | PC.NURSE ---
Pt does not wish to have king taken out until morning. Pt reports that he is too scared to do it right now. CAUTI education provided.
[2021-11-03] MEDS: ampicillin-sulbactam 3 GM in sodium chloride 0.9% (plus) 50 ML IV ×4 (02:40→21:17)
[2021-11-03 05:27] LABS: Basophils # 0.1 10^3/uL (0.0-0.1); Basophils % 0.4 %; Eosinophils # 0.5 10^3/uL (0.0-0.8); Hematocrit 22.3 % (42.0-52.0); Hemoglobin 7.6 g/dL (11.7-16.6); Lymphocytes % 25.5 %; Mean Corpuscular HGB Conc 34.1 g/dL (30.0-36.0); Mean Corpuscular Hemoglobin 28.6 pg (28.0-34.0); Mean Corpuscular Volume 83.8 fl (80-94); Mean Platelet Volume 10.5 fL (7.4-10.4); Monocytes % 8.3 %; Neutrophils # 6.88 10^3/uL (1.8-7.7); Neutrophils % 58.8 %; Nucleated Red Blood Cells % 0 %; Platelet Count 185 10^3/cmm (130-400); Red Blood Count 2.66 10^6/uL (4.1-5.3); White Blood Count 11.7 10^3/uL (4.0-10.0)
[2021-11-03 05:43] LABS: Anion Gap 9.3 (5-19); Blood Urea Nitrogen 4 mg/dL (6-20); Calcium 7.8 mg/dL (8.5-10.5); Carbon Dioxide 27 mmol/L (22-29); Chloride 102 mmol/L (98-107); Glomerular Filtration Rate 155.2 mL/min (90-130); Glucose 120 mg/dL (65-115); Magnesium 1.6 mg/dL (1.7-2.3); Osmolality Calculated 278 mOsm/kg (285-295); Potassium 3.3 mmol/L (3.5-5.1); Sodium 135 mmol/L (136-145)
[2021-11-03 05:45] LABS: Phosphorus 2.2 mg/dL (2.5-4.5)
[2021-11-03 05:52] LABS: Creatinine Clr Calc Pharmacy 151.9687
[2021-11-03] MEDS: pantoprazole 40 mg SDV IVP ×2 (07:11→17:44)
--- NOTE | 2021-11-03 08:30 | P.PN_ITS ---
Subjective Subjective: Seen this morning. He states he had a little bit of blood in his stool this morning. It did look like red fresh blood. However later on he told the staff that it was clotted blood. We will continue to monitor. Hemoglobin stable 7.6. WBC came down to 11.7. He does have positivity of hepatitis C and he will follow-up with Dr. Benavidez as an outpatient. Discussed this diagnosis with him today. Mcdonnell catheter removed yesterday. NG tube removed yesterday. He is tolerating clear liquid diet. Vitals/I&O/Wt Last Vital Signs Temp 97.8 F 11/03/21 07:00 Pulse 49 L 11/03/21 07:00 Resp 13 11/03/21 07:00 BP 97/66 11/03/21 07:00 Pulse Ox 98 11/03/21 07:00 11/02/21 11/03/21 11/03/21 22:59 06:59 14:59 Intake Total 2521 / 3916 170 / 4086 966.667 / 966.667 Output Total 2700 / 2700 800 / 3500 Balance -179 / 1216 -630 / 586 966.667 / 966.667 Physical Exam Narrative: General: Alert oriented x3, patient seen laying in bed appearing comfortable, HEENT: Normocephalic, atraumatic, EOMI, breathing normally Cardio: Regular rate rhythm, normal S1-S2, no murmurs rubs gallops, Respiratory: Good bilateral air entry, no wheezes no rhonchi appreciated GI: Abdomen soft, nontender, nondistended, bowel sounds + Behavior: Appropriate and cooperative Extremities:? no edema, no cyanosis Urinary Catheter Management: Mcdonnell: Cath Placed During This Visit: yes, but has since been removed by the nurse Reason for Continuing Indwelling Catheter: Decision to DC Catheter Urinary Catheter Date of Insertion: 11/01/21 Urinary Catheter Time of Insertion: 12:35 Date Urinary Catheter Removed: 11/03/21 Time Urinary Catheter Discontinued: 06:18 Data : 11/03/21 04:47 11/03/21 04:47 Micro: Microbiology 11/01/21 11:10 Gram Stain - Final Sputum - Endotracheal Tube Aspirate Sputum Culture - Preliminary A&P Assessment and plan (1) Germaine-Flannery tear: Status: Acute (2) Acute blood loss anemia: Status: Acute (3) Acute GI bleeding: Status: Acute (4) Tobacco use disorder: Status: Acute (5) Rhabdomyolysis: Status: Inactive (6) Transaminitis: Status: Acute (7) Hyperbilirubinemia: Status: Acute (8) Methamphetamine abuse: Status: Acute (9) Hyponatremia: Status: Acute (10) Thrombocytosis: Status: Acute (11) Leukocytosis: Status: Acute Plan #Acute blood loss anemia secondary to Germaine-Flannery tear #Acute GI bleed #Vent dependent respiratory failure?extubated #Nicotine dependence #Methamphetamine abuse #Leukocytosis #Possible aspiration event #Hepatitis C positive ? Continue Protonix 40 IV twice daily ? EGD does not show any esophageal varices.? Germaine-Flannery tear noted. ? Tolerating clear liquids. Advance to full liquids today. ? Continue Unasyn for now for aspiration pneumonia. -Status post 4 unit packed RBC, 1 unit FFP. ? Continue to monitor hemoglobin. ? We will need to follow-up outpatient with Dr. Benavidez for establishing primary care and treatment of hepatitis C. Patient agreeable. Full code DVT prophylaxis: SCDs May transfer out of ICU today to the floor. Attestations Medical Necessity Statement*: Continue to monitor in the hospital overnight for report of bloody diarrhea. We will advance diet today. Also every 24-48 hours patient will be discharged. 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
[2021-11-03] MEDS: sodium chloride 0.9% 1,000 ML 999 ML IV (08:52)
[2021-11-03] MEDS: nicotine 21 mg Patch 1 PATCH TRANSDERMA (09:01)
[2021-11-03 09:06] LABS: Alanine Aminotransferase 9 U/L (0-41); Albumin Level 3.1 g/dL (3.5-5.2); Alkaline Phosphatase 39 IU/L (40-130); Aspartate Amino Transferase 12 U/L (0-40); Globulin 1.5 g/dL (1.3-4.6); Total Bilirubin 0.7 mg/dL (0.15-1.2); Total Protein 4.6 g/dL (6.6-8.7)
[2021-11-03] MEDS: magnesium sulfate premix 4 GM/100 ML PREMIX IV (09:06)
[2021-11-03] MEDS: sodium chloride 0.9% 1,000 ML 100 ML IV ×2 (09:59→21:16)
[2021-11-03] MEDS: acetaminophen 325 mg Tablet 650 MG PO ×2 (12:15→20:11)
--- NOTE | 2021-11-03 12:43 | PM.PN ---
Subjective Subjective: He reports no abdominal pain. He had a small BM of clotted blood this morning. Denies any nausea or emesis. Vitals/I&O/Wt Last Vital Signs Temp 97.8 F 11/03/21 07:00 Pulse 60 11/03/21 10:38 Resp 15 11/03/21 10:38 BP 124/69 11/03/21 10:38 Pulse Ox 98 11/03/21 10:38 11/02/21 11/03/21 11/03/21 22:59 06:59 14:59 Intake Total 2521 / 3916 170 / 4086 2900.000 / 2900.000 Output Total 2700 / 2700 800 / 3500 1600 / 1600 Balance -179 / 1216 -630 / 586 1300.000 / 1300.000 Physical Exam Narrative: General : Patient is well developed , no acute distress, oriented x3 Head : Normal cephalic, a-traumatic. Ears : Pinnae and external canal are normal.? Hearing is normal.? Eyes : PERRLA,? Sclera and injection are normal. No conjunctival discharge. Nose : Mucous membranes are without erythema. Throat : buccal mucosa is normal, gums are without significant recession or hypertrophy. Lungs : Equal chest rise bilaterally, no use of accessory muscles, trachea is midline. Cor : Rate and rhythm are normal. ? Abdomen : Soft, ND, NT, no g/r/m Extremities : No edema, no cyanosis or clubbing, dorsalis pedis pulses are present bilaterally, non-tender to palpation of calves.? Upper extremities are normal bilaterally. Back : non-tender to palpation, no CVA tenderness. Neuro : CN II - XII intact, Upper and lower extremities have equal and full strength Urinary Catheter Management: Mcdonnell: Cath Placed During This Visit: yes, but has since been removed by the nurse Reason for Continuing Indwelling Catheter: Decision to DC Catheter Urinary Catheter Date of Insertion: 11/01/21 Urinary Catheter Time of Insertion: 12:35 Date Urinary Catheter Removed: 11/03/21 Time Urinary Catheter Discontinued: 06:18 Data : 11/03/21 04:47 11/03/21 04:47 Micro: Microbiology 11/01/21 11:10 Gram Stain - Final Sputum - Endotracheal Tube Aspirate Sputum Culture - Final A&P Assessment and plan (1) Acute blood loss anemia: Status: Acute (2) Acute GI bleeding: Status: Acute (3) Germaine-Flannery tear: Status: Acute Plan No gastritis seen on EGD but continue Protonix twice daily Full liquid diet A.m. labs Medicine following Attestations Medical Necessity Statement*: Requires hgb monitored and diet slowly advanced due to GI bleed. Requires at least one more night in the hospital. Coding Level of Care Code Acute Slitter Helper for [facility] Robin Diagnoses Acute blood loss anemia D62 Acute GI bleeding K92.2 Germaine-Flannery tear K22.6
--- NOTE | 2021-11-03 15:00 | PC.NURSE ---
Bedside report completed with TAE Sadler. Care assumed.
[2021-11-03 18:20] LABS: Basophils # 0.1 10^3/uL (0.0-0.1); Basophils % 0.8 %; Eosinophils # 0.4 10^3/uL (0.0-0.8); Eosinophils % 3.2 %; Hematocrit 27.1 % (42.0-52.0); Hemoglobin 9.1 g/dL (11.7-16.6); Lymphocytes % 25.9 %; Mean Corpuscular HGB Conc 33.6 g/dL (30.0-36.0); Mean Corpuscular Hemoglobin 28.5 pg (28.0-34.0); Monocytes # 0.9 10^3/uL (0.2-0.9); Monocytes % 7.3 %; Nucleated Red Blood Cells % 0 %; Platelet Count 247 10^3/cmm (130-400); Red Blood Count 3.19 10^6/uL (4.1-5.3); Red Cell Distribution Width 15.1 % (12.1-15.1); White Blood Count 11.7 10^3/uL (4.0-10.0)
--- NOTE | 2021-11-03 19:11 | PC.NURSE ---
Pt pleasant, cooperative Denies pain or other discomforts today. Urine output adequate. He has had 2 dark maroon, tarrry stools this sift. He received Magnesium and potassium phosphate per IV this shift. Bedside report completed with TAE Garner.
[2021-11-03] MEDS: sucralfate 1 gm Tablet PO (21:55)
[2021-11-04] VITALS (14 sets, daily range): BP systolic 88–146; BP diastolic 52–81; PULSE 45–105; RESP 11–25; TEMP 36.6–36.8; O2SAT 97–100
[2021-11-04] MEDS: ampicillin-sulbactam 3 GM in sodium chloride 0.9% (plus) 50 ML IV ×2 (03:21→08:26)
[2021-11-04 05:17] LABS: Basophils # 0.1 10^3/uL (0.0-0.1); Basophils % 0.8 %; Eosinophils # 0.5 10^3/uL (0.0-0.8); Eosinophils % 4.5 %; Hematocrit 25.2 % (42.0-52.0); Hemoglobin 8.3 g/dL (11.7-16.6); Lymphocytes # 3.1 10^3/uL (0.8-4.8); Lymphocytes % 30.8 %; Mean Corpuscular HGB Conc 32.9 g/dL (30.0-36.0); Mean Corpuscular Hemoglobin 28.1 pg (28.0-34.0); Mean Corpuscular Volume 85.4 fl (80-94); Mean Platelet Volume 10.1 fL (7.4-10.4); Monocytes # 0.7 10^3/uL (0.2-0.9); Monocytes % 7.1 %; Neutrophils # 5.24 10^3/uL (1.8-7.7); Neutrophils % 51.8 %; Nucleated Red Blood Cells % 0 %; Platelet Count 248 10^3/cmm (130-400); Red Blood Count 2.95 10^6/uL (4.1-5.3); Red Cell Distribution Width 15.5 % (12.1-15.1); White Blood Count 10.1 10^3/uL (4.0-10.0)
[2021-11-04 05:30] LABS: Anion Gap 11.4 (5-19); Blood Urea Nitrogen 5 mg/dL (6-20); Calcium 8.3 mg/dL (8.5-10.5); Carbon Dioxide 25 mmol/L (22-29); Chloride 106 mmol/L (98-107); Glomerular Filtration Rate 129.9 mL/min (90-130); Glucose 102 mg/dL (65-115); Osmolality Calculated 283 mOsm/kg (285-295); Potassium 4.4 mmol/L (3.5-5.1); Sodium 138 mmol/L (136-145)
[2021-11-04] MEDS: pantoprazole 40 mg SDV IVP (05:46)
[2021-11-04] MEDS: sodium chloride 0.9% 1,000 ML 100 ML IV (06:59)
[2021-11-04] MEDS: nicotine 21 mg Patch 1 PATCH TRANSDERMA (08:25)
--- NOTE | 2021-11-04 10:06 | PC.CHAP ---
Pastoral Care Encounter/Spiritual Assessment Type of Contact [] Declined supervisor frame sample and pattern visit [] Patient/Family/Request visit [] Outpatient visit [] Follow-up visit [] Physician referral [] Code/Alert [x] Routine visit [] Staff referral [] Actively dying [] Patient sleeping [] Family support [] [] Out of room [] Palliative care [] [] Receiving care in room [] Pre-surgical visit [] Trauma [] Long length of stay [x] ICU visit [] Other: Relational/Emotional Strength [] Patient feels connected with others/family/visitors/staff [] Distress [] Loneliness/isolation [] Abandonment Spirituality of Patient [] Person of Martina [] Attends Baptism of their Martina [] Believes in Prayer [] Reads Bible or Tenriism materials [] There are Spiritual issues to be addressed Funeral Home Director Interventions [x] Prayer [x] Active listening [x] Non-anxious presence [x] Spiritual/emotional support [] Crisis/trauma care [] Spiritual counseling [] Bereavement support [] Provided bereavement packet [] Provided Bible/devotional materials [] Provided toy/stuffed animal, coloring book to patient or family member [] Provided Communion [] Anointing/[place] [] Salvation [x] Completed spiritual assessment [] Other: Impact on Illness or Injury [] Angry [] Fearful [] Anxious [] Often cries [] Exhaustion [] Unable to work [] Unable to attend scientology [] Unable to walk/stand [] Unable to read [] Unable to drive [] Unable to eat/drink [] Unable to sleep [] Unable to be with family [] Patient intubated [] Other: Summary prayed for healing... Time spent with patient 5 min
--- NOTE | 2021-11-04 11:12 | P.DS_ITS ---
Discharge Providers Date of Admission: 10/31/21 19:11 Date of Discharge: November 04, 2021 Attending Provider at Admission: Prudencio Oscar MD Attending Provider at Discharge: Katina Osborn MD Diagnoses at Discharge Discharge Diagnosis (1) Germaine-Flannery tear: Status: Resolved (2) Acute blood loss anemia: Status: Resolved (3) Acute GI bleeding: Status: Resolved (4) Tobacco use disorder: Status: Acute (5) Rhabdomyolysis: Status: Resolved (6) Transaminitis: Status: Resolved (7) Hyperbilirubinemia: Status: Resolved (8) Methamphetamine abuse: Status: Acute (9) Hyponatremia: Status: Resolved (10) Thrombocytosis: Status: Resolved (11) Leukocytosis: Status: Resolved Reason for Visit Reason for Visit: n/v Brief History: as per hpi Moody Tuttle is a 31 year old male who presented to the hospital with 1 day history of nausea vomiting and hematemesis.? Patient denies any abdominal pain.? He reports last bowel movement was yesterday and was normal.? Denies any hematochezia or melena.? He was recently in the hospital after a long binge on methamphetamines and alcohol, with heat exposure and rhabdomyolysis.? He reports he was vomiting bright red blood and dark clots.? He reports he needs to stop drinking and doing drugs. Hospital Course Hospital Course Patient presented to the ER with vomiting and blood in stool. He was admitted to the floor. Patient had further vomiting and lost almost 2 L of blood. He was transferred to the ICU and intubated for airway protection. Patient went for EGD and Germaine-Flannery tear was found. He was kept on proton pump inhibitor and sucralfate. He does receive blood transfusion during this admission as well. Also he was found to be hep C positive. She was given a referral to the primary care physician for further management work-up and treatment. He did not have a primary care physician therefore he was set up with him at discharge. Patient was also provided a note for work. Hemoglobin stable on day of discharge. General surgery to follow the case very closely. Patient was able to tolerate a diet and doing well at time of discharge and therefore was sent home with Protonix, Carafate. He was also treated for aspiration pneumonia and given Augmentin at discharge. Patient was given a repeat CBC prescription A few days and to follow-up with primary care. He was advised to stay well-hydrated. Physical Exam Urinary Catheter Management: Mcdonnell: Cath Placed During This Visit: yes, but has since been removed by the nurse Reason for Continuing Indwelling Catheter: Decision to DC Catheter Urinary Catheter Date of Insertion: 11/01/21 Urinary Catheter Time of Insertion: 12:35 Date Urinary Catheter Removed: 11/03/21 Time Urinary Catheter Discontinued: 06:18 Discharge Data Studies Completed and Pending Completed Studies During Hospitalization Category Date Time Status CT abdomen pelvis w con* [id number] Urgent Cat Scan 10/31/21 14:10 Completed XR chest 1V portable [id number] NOW Exams 10/31/21 23:12 Completed XR chest 1V portable [id number] Stat Exams 11/01/21 10:10 Completed Pending at discharge Category Date Time Status ABO/Rh Type Stat Lab 10/31/21 14:51 Results CBC Auto Diff [Complete Blood Count w/Auto] Q12H Lab 11/04/21 18:00 Ordered Complete Crossmatch Stat Lab 10/31/21 14:51 Results FFP [Frozen Plasma FZ <24 1st Cont] Routine Lab 10/31/21 14:51 Results PACKED CELLS [Leukocyte Reduced RBC] Stat Lab 10/31/21 14:51 Results Type and Screen Stat Lab 10/31/21 14:51 Results Radiology Impressions Abdomen/Pelvis CT 10/31/21 14:10 IMPRESSION: No acute intra-abdominal or intrapelvic pathology. Chest X-Ray 11/01/21 10:10 IMPRESSION: No acute findings. NG tube is in the stomach. endotracheal tube is above the manish Laboratory Results WBC 10.1 10^3/uL (4.0-10.0) H 11/04/21 04:38 RBC 2.95 10^6/uL (4.1-5.3) L 11/04/21 04:38 Hgb 8.3 g/dL (11.7-16.6) L 11/04/21 04:38 Hct 25.2 % (42.0-52.0) L 11/04/21 04:38 MCV 85.4 fl (80-94) 11/04/21 04:38 MCH 28.1 pg (28.0-34.0) 11/04/21 04:38 MCHC 32.9 g/dL (30.0-36.0) 11/04/21 04:38 RDW 15.5 % (12.1-15.1) H 11/04/21 04:38 Plt Count 248 10^3/cmm (130-400) 11/04/21 04:38 MPV 10.1 fL (7.4-10.4) 11/04/21 04:38 Neut % (Auto) 51.8 % 11/04/21 04:38 Lymph % (Auto) 30.8 % 11/04/21 04:38 Coke % (Auto) 7.1 % 11/04/21 04:38 Eos % (Auto) 4.5 % 11/04/21 04:38 Baso % (Auto) 0.8 % 11/04/21 04:38 Neut # (Auto) 5.24 10^3/uL (1.8-7.7) 11/04/21 04:38 Lymph # (Auto) 3.1 10^3/uL (0.8-4.8) 11/04/21 04:38 Coke # (Auto) 0.7 10^3/uL (0.2-0.9) 11/04/21 04:38 Eos # (Auto) 0.5 10^3/uL (0.0-0.8) 11/04/21 04:38 Baso # (Auto) 0.1 10^3/uL (0.0-0.1) 11/04/21 04:38 Nucleated RBC % (auto) 0 % 11/04/21 04:38 Total Counted 100 (0-100) 11/01/21 22:50 Atypical Lymphs % 0.0 % (0-5) 11/01/21 22:50 Absolute Neutrophils 23.1 10^3/cmm (1.4-6.5) H 11/01/21 22:50 Segmented Neutrophils 84 % 11/01/21 22:50 Abs Segm Neuts (Man) 22.8 10/cmm (1.6-7.1) H 11/01/21 22:50 Band Neutrophils 1.0 % 11/01/21 22:50 Abs Band Neuts (Man) 0.3 10^3/cmm (0.0-1.2) 11/01/21 22:50 Absolute Lymphocytes 3.3 10^3/cmm (1.2-3.4) 11/01/21 22:50 Lymphocytes (Manual) 12 % 11/01/21 22:50 Monocytes (Manual) 3.0 % 11/01/21 22:50 Absolute Monocytes 0.8 10^3/cmm (0.1-0.6) H 11/01/21 22:50 Eosinophils (Manual) 0 % 11/01/21 22:50 Absolute Eosinophils 0.0 10^3/cmm (0.0-0.7) 11/01/21 22:50 Basophils (Manual) 0.0 % 11/01/21 22:50 Absolute Basophils 0.0 10^3/cmm (0.0-0.2) 11/01/21 22:50 Nucleated RBCs # 0.0 /100WBC 11/04/21 04:38 Platelet Estimate Normal (Normal) 11/01/21 22:50 PT 15.40 SECONDS (12.1-14.9) H 11/02/21 04:40 INR 1.19 (0.8-1.2) 11/02/21 04:40 Specimen Type Arterial 11/01/21 10:33 Sample Site Radial, right 11/01/21 10:33 ABG pH 7.33 (7.35-7.45) L 11/01/21 10:33 ABG pCO2 45.0 mmHg (35-45) 11/01/21 10:33 ABG pO2 113.0 mmHg (80.0-100.0) H 11/01/21 10:33 ABG HCO3 23.8 mmol/L (22-26) 11/01/21 10:33 ABG O2 Saturation 99.5 11/01/21 10:33 ABG Base Excess -2.1 mmol/L (-2.0-2.0) L 11/01/21 10:33 Royer Test Pos 11/01/21 10:33 A-a O2 Gradient 24.3 mmHg (5-10) H 11/01/21 10:33 Hematocrit 22.6 % (42-52) L 11/01/21 10:33 Hgb O2 Saturation 96.6 % (95-100) 11/01/21 10:33 Carboxyhemoglobin 1.9 %THgb (0.4-20.1) 11/01/21 10:33 Methemoglobin 1.0 % (0.4-1.5) 11/01/21 10:33 Total Hemoglobin 7.4 g/dL (14-18) L 11/01/21 10:33 Sodium 138.0 mmol/L (131-143) 11/01/21 10:33 Potassium 4.1 mmol/L (3.5-5.0) 11/01/21 10:33 Glucose 128.0 mg/dL (70-115) H 11/01/21 10:33 Ionized Calcium 1.1 mmol/L (1.1-1.4) 11/01/21 10:33 O2 Delivery Device Vent 11/01/21 10:33 FiO2 50.0 % 11/01/21 10:33 Tidal Volume 0.45 11/01/21 10:33 PEEP 5.0 cmH20 11/01/21 10:33 Web Marketing Assistant ID Cak 11/01/21 10:33 Sodium 138 mmol/L (136-145) 11/04/21 04:38 Potassium 4.4 mmol/L (3.5-5.1) 11/04/21 04:38 Chloride 106 mmol/L (98-107) 11/04/21 04:38 Carbon Dioxide 25 mmol/L (22-29) 11/04/21 04:38 Anion Gap 11.4 (5-19) 11/04/21 04:38 BUN 5 mg/dL (6-20) L 11/04/21 04:38 Creatinine 0.7 mg/dL (0.7-1.2) 11/04/21 04:38 GFR Calculation 129.9 mL/min (90-130) 11/04/21 04:38 Glucose 102 mg/dL (65-115) 11/04/21 04:38 POC Glucose 173 mg/dL (70-110) H 10/31/21 22:30 Calculated Osmolality 283 mOsm/kg (285-295) L 11/04/21 04:38 Calcium 8.3 mg/dL (8.5-10.5) L 11/04/21 04:38 Phosphorus 2.2 mg/dL (2.5-4.5) L 11/03/21 04:47 Magnesium 1.6 mg/dL (1.7-2.3) L 11/03/21 04:47 Iron 201 ug/dL (59-158) H 11/01/21 05:30 TIBC 218 mcg/dl 11/01/21 05:30 % Saturation 92.2 % (20-50) H 11/01/21 05:30 Unsat Iron Binding < 17 ug/dL (112-347) L 11/01/21 05:30 Total Bilirubin 0.7 mg/dL (0.15-1.2) 11/03/21 04:47 Direct Bilirubin 0.20 mg/dL (0.00-0.30) 11/03/21 04:47 AST 12 U/L (0-40) 11/03/21 04:47 ALT 9 U/L (0-41) 11/03/21 04:47 Alkaline Phosphatase 39 IU/L (40-130) L 11/03/21 04:47 Creatine Kinase 210 U/L (39-308) 10/31/21 14:10 Total Protein 4.6 g/dL (6.6-8.7) L 11/03/21 04:47 Albumin 3.1 g/dL (3.5-5.2) L 11/03/21 04:47 Globulin 1.5 g/dL (1.3-4.6) 11/03/21 04:47 Lipase 11 U/L (13-60) L 10/31/21 14:15 Procalcitonin 0.44 ng/mL (0-0.5) 11/02/21 04:40 Urine Opiates Screen Negative ng/mL (Negative) 11/01/21 04:30 Ur Barbiturates Screen Negative ng/mL (Negative) 11/01/21 04:30 Ur Phencyclidine Scrn Negative ng/mL (Negative) 11/01/21 04:30 Ur Amphetamines Screen Negative ng/mL (Negative) 11/01/21 04:30 U Benzodiazepines Scrn Negative ng/mL (Negative) 11/01/21 04:30 Urine Cocaine Screen Negative ng/mL (Negative) 11/01/21 04:30 U Marijuana (THC) Screen Positive ng/mL (Negative) H 11/01/21 04:30 Blood Type A Positive 10/31/21 14:51 Rho(D) Type Positive 10/31/21 14:51 Antibody Screen Negative 10/31/21 14:51 Crossmatch See Detail 10/31/21 14:51 Vitals Last Vital Signs Temp 98.2 F 11/04/21 08:00 Pulse 95 11/04/21 09:00 Resp 22 H 11/04/21 09:00 BP 117/76 11/04/21 09:00 Pulse Ox 99 11/04/21 09:00 Discharge Plan Discharge Patient Disposition: Home Condition: Stable Prescriptions: New sucralfate 1 gram Tablet 1 g PO Q12H 14 Days Qty: 28 0RF Protonix 40 mg tablet,delayed release (DR/EC) 40 mg PO BID 14 Days Qty: 28 0RF amoxicillin-pot clavulanate 875-125 mg tablet 1 tab PO BID 5 Days Qty: 10 0RF Discontinued pantoprazole 40 mg tablet,delayed release (DR/EC) 40 mg PO DAILY 28 Days Qty: 30 0RF Discharge Orders: Discharge Order (Routine); Ordered 11/04/21 Ordered By: Katina Osborn Referrals: Graeme Benavidez MD [Physician] - 11/12/21 11:15 am (Appointment will be w/ Jessi Davis APN in Dr. Carpenter office. ) Discharge Diet: GI Soft Discharge Activity: Resume usual activity Patient Instructions: Sucralfate (By mouth) (Carafate), Amoxicillin/Clavulanate Potassium (By mouth) (Augmentin, Augmentin..., Pantoprazole (By mouth) (Protonix), GI (Gastrointestinal) Soft Diet (DC), GI Discharge Instructions, Opioid Safety Activity Restrictions/Additional Instructions: Please follow up with PCP for treatment of hepatitis C. If you experience lightheadedness, dizziness, chest pains, shortness of breath, abdominal pain, more blood in stool, nausea, vomiting, please return to ER. Please have your labs checked as directed. Discharge Attestations Time Spent in Discharge Care*: less than 30 min Quality Metrics Clinical Quality Measures [ No reported AMI, CVA or VTE this stay] Coding Level of Care Code Acute Chg FW DC note Diagnoses Germaine-Flannery tear K22.6 Acute blood loss anemia D62 Acute GI bleeding K92.2 Tobacco use disorder F17.200 Rhabdomyolysis M62.82 Transaminitis R74.01 Hyperbilirubinemia E80.6 Methamphetamine abuse F15.10 Hyponatremia E87.1 Thrombocytosis D75.839 Leukocytosis D72.829
[2021-11-04] MEDS: sucralfate 1 gm Tablet PO (12:09)
--- NOTE | 2021-11-04 14:00 | PC.NURSE ---
Called to patients bedside by primary nurse TAE Landaverde. Spoke with patient at length regarding discharge plan. Patient alert & oriented X four, pleasant and cooperative. Patient verbalizes concern about receiving medications during his stay and being on parole. He is concerned that if he is drug tested and the medications given during his stay cause him to have a positive drug test, that no one will believe him. Patient gave me verbal consent to contact his security officer supervisor and gave me her contact information. Gabby John [phone], , email . I contacted Shalini Grayson RN in risk management. Okay from risk management to contact security officer supervisor and give information regarding patient's stay. I placed a call to both numbers listed and left a voicemail. I contacted the parole office which the patient states he attends and spoke with a female who answered and stated her name is Gabby Leahy. Gabby states that a current list of medications given during patients stay and documentation showing patients admit and discharge date would suffice. Sending hard copy with patient and e-mail copy to parole officers listed e-mail.
--- NOTE | 2021-11-04 14:40 | PC.NURSE ---
discharge instructions reviewed with patient. verbalized understanding on follow up appointment, blood work, and medications. no further questions. discharge summary sent to patients community services officer per his request to cover his tox screen. note also sent with patient for his work and court. pt left via [place] to private vehicle with family.
== END 2021-11-04 14:30 | disposition home or self-care (01) | DRG 368 ==
LOC: ER 17:44 → MEDSURG 18:38 → ICU 11-01 06:47
PROVIDERS: Anesthesiology; Family Medicine; Surgery; Admitting Provider Internal Medicine; Emergency Provider Emergency Medicine; Visit Provider Internal Medicine
PROC: 0DJ08ZZ Inspection of Upper Intestinal Tract, Via Natural or Artificial Opening Endoscopic (ICD-10-PCS; CPT 43235; principal; 2021-11-01 08:00)
DX: K22.6 Gastro-esophageal laceration-hemorrhage syndrome (principal); J69.0 Pneumonitis due to inhalation of food and vomit; M62.82 Rhabdomyolysis; D62 Acute posthemorrhagic anemia; E87.1 Hypo-osmolality and hyponatremia; F10.21 Alcohol dependence, in remission; F17.210 Nicotine dependence, cigarettes, uncomplicated; F15.10 Other stimulant abuse, uncomplicated; F12.21 Cannabis dependence, in remission; W18.30XA Fall on same level, unspecified, initial encounter; Y93.9 Activity, unspecified; Y92.230 Patient room in hospital as the place of occurrence of the external cause; I95.9 Hypotension, unspecified; J98.01 Acute bronchospasm; B19.20 Unspecified viral hepatitis C without hepatic coma; D75.839 Thrombocytosis, unspecified
CPT/HCPCS: 36415; 36416; 36430; 36600; 43235; 51702; 71045; 74177; 80048; 80051; 80053; 80076; 80306; 82330; 82550; 82805; 82962; 83540; 83550; 83690; 83735; 84100; 84145; 85007; 85014; 85018; 85025; 85027; 85610; 86850; 86900; 86920; 86927; 87070; 87205; 94002; 94799; 96361; 96374; 99285; A4570; C9113; J0295; J2250; J2270; J2354; J2405; J2704; J3010; J3430; J3475; J3480; J7030; J7050; P9016; P9017; Q9967

== ENCOUNTER → 2021-11-07 14:32 | Outpatient (BNVA) | payer OTHER, SELFPAY | PROVIDERS: Visit Provider Nurse Practitioner Family | DX: B19.20 Unspecified viral hepatitis C without hepatic coma (principal); D62 Acute posthemorrhagic anemia; Z72.89 Other problems related to lifestyle; F17.210 Nicotine dependence, cigarettes, uncomplicated; F15.10 Other stimulant abuse, uncomplicated | CPT/HCPCS: 82105; 85025; 87902 ==